=== PATIENT | male | born 1970 | race Caucasian/White ===

== ENCOUNTER 2018-02-01 16:33 | Observation (INO) | payer BC, SELFPAY ==
[2018-02-01] VITALS (9 sets, daily range): BP systolic 124–158; BP diastolic 72–95; PULSE 69–87; RESP 16–18; TEMP 36.7–36.8; O2SAT 94–98; BMI 41.4; BMI 41.6
--- NOTE | 2018-02-01 17:07 | EKG12_ITS ---
Test Reason : DIZZINESS Blood Pressure : / mmHG Vent. Rate : 075 BPM Atrial Rate : 075 BPM P-R Int : 152 ms QRS Dur : 120 ms QT Int : 384 ms P-R-T Axes : 038 041 037 degrees QTc Int : 428 ms Normal sinus rhythm Normal ECG Confirmed by JULEE ESPINOZA, FERNANDO ([id number]), editor index ELEAZAR GARCIA ([id number]) on 02/03/2018 1:54:34 PM Referred By: MAGO Confirmed By:FERNANDO LADD MD
--- NOTE | 2018-02-01 17:09 | ED.VISSUMM ---
- ER Visit Summary Date of Service: 02/01/18 Chief Complaint: Vertigo History of Present Illness: The patient is a 47 M with vertigo symptoms for 8 days. He was seen when this started on January 24 at [facility]. He was treated with fluids and medications. He had a CT of his head. He had continued symptoms and they recommended observation, but he went home. He has had continued vertigo on and off since then. He saw Dr. Wong today and they attempted Best maneuvers, but they did not help. He has had continued vertigo/spinning. He also reports nausea and vomiting, sinus congestion and drainage, unsteady gait, ataxia, and vision changes. Physical Examination: Afebrile and vital signs unremarkable. HEENT exam unremarkable. Cranial nerves grossly intact and exam nonfocal. Skin appears normal without rash. Heart regular. Lungs clear. Test Results: EKG and laboratory studies are pending. I am awaiting CT results from the outside facility. Emergency Department Course and Treatment: Patient treated with fluids, Benadryl, and Compazine while awaiting results. We will attempt to obtain his CT results. He will likely need MRI. I also paged neurology upon the patient's arrival. CT from the outside hospital was negative. I spoke with Dr. Miller who advised CTA head and neck in the ED, then admission for MRI. Laboratory studies and CTA unremarkable. Patient was drowsy but had no new or worsening symptoms. Discussed with the hospitalist and will be admitted. Treatment Plan: As above Disposition: Admission Impression: 1. Vertigo This note was generated with Swidjit dictation software. It may contain incorrect words, spelling, and punctuation that were not noted in review of the chart prior to signing ED Disposition - Plan for ED Patient: Chief Complaint: Dizziness Referrals: Marco Wong PA [PHYSICIAN TRANSPORTATION MUSEUM HELPER] -
--- NOTE | 2018-02-01 17:19 | NURSING ---
CALLED [facility], TALKED TO LOPEZ IN RADIOLOGY. SHE WILL FAX RESULTS OF CT BRAIN DONE JANUARY 24.
--- NOTE | 2018-02-01 17:19 | NURSING ---
NEUROLOGY FOR Lynn MERCEDES
--- NOTE | 2018-02-01 17:20 | CT_ITS ---
CTA of the neck INDICATION: Dizziness TECHNIQUE: CTA of the neck was performed scanning in a dynamically enhanced fashion from the pulmonary apices to the skull base in the axial plane followed by sagittal and coronal reconstructions. Additional 3-D images were obtained at the workstation. Radiographic technique was optimized to limit patient radiation dose FINDINGS:. There is very minor diffuse soft plaque seen within the carotid arteries bilaterally without evidence for significant stenosis. The vertebrals are codominant and there is no evidence for significant segmental stenosis CT/CTA Neck W/WO Contrast IMPRESSION: Minor atherosclerotic changes without evidence for hemodynamically significant stenosis utilizing NASCET criteria Electronically Signed: Froylan Baig MD at 19:13 EDT , Service support ,
--- NOTE | 2018-02-01 17:20 | CT_ITS ---
STUDY: CTA OF THE BRAIN REASON FOR EXAM: Male, 47 years old. Dizziness RADIATION DOSAGE (If Supplied By Facility): CTDIvol = ( 27.35 ) mGy, DLP = ( 1495.80 ) mGycm TECHNIQUE: CT angiography was performed with a multi-detector CT scanner. Data acquisition was obtained from the skull base through the vertex following intravenous administration of ml of . MIP images were reconstructed from the axial data set. Post-processing of the angiographic images was performed, with multiplanar reformation and 3D reconstruction. Individualized dose optimization techniques were used for this CT. COMPARISON: None. FINDINGS: Normal bilateral petrous carotid arteries. Normal right cavernous carotid artery with a normal supraclinoid bifurcation. Normal left cavernous carotid artery with a normal supraclinoid bifurcation. Normal right A1 segments of the anterior cerebral artery. Normal left A1 segments of the anterior cerebral artery. Normal intact anterior communicating artery (ACOM). Normal bilateral A2 segments of the anterior cerebral arteries. Normal right M1 and M2 segments of the middle cerebral arteries, with a normal M1 bifurcation. Normal left M1 and M2 segments of the middle cerebral arteries, with a normal M1 bifurcation. Posterior communicating arteries are not visualized consistent with normal variant Normal bilateral vertebral arteries. Normal basilar artery with a normal basilar bifurcation. The visualized bilateral superior cerebellar (SCA) arteries are normal. Normal bilateral P1, P2 and visualized P3 segments of the posterior cerebral arteries. There is no demonstrated aneurysm of the hoh of [place]. There is no demonstrated abnormality of the visualized brain. CT/CTA Head W/WO Contrast IMPRESSION: Normal hoh of [place] without a demonstrated aneurysm or hemodynamically significant stenosis. Electronically Signed: Froylan Baig MD at 19:15 EDT , Service support ,
[2018-02-01 17:37] LABS: Absolute Lymphocyte Count 2.64 X10^3/ul (0.83-4.51); Absolute Neutrophil Count 7.1 X10^3/uL (2.0-7.7); Basophil# 0.06 X10^3/uL; Basophil% 0.5 % (0-1); Eosinophil# 0.21 X10^3/uL; Eosinophils% 1.9 % (0-5); Hemoglobin 14.8 g/dl (13.0-16.5); Lymphocyte # 2.64 X10^3/ul (4.0); Lymphocyte % 24.2 % (19-41); Mean Corp Hgb Conc 33.6 g/gl (32-36); Mean Corpuscular Hgb 30.4 pg (27.0-32.0); Mean Corpuscular Volume 90.3 fL (80-94); Mean Platelet Vol. 10.1 fl (6.2-12.0); Monocyte# 0.81 X10^3/uL; Monocyte% 7.4 % (0-10); Neutrophil # 7.12 X10^3/uL (2.7-7.7); Neutrophil % 65.2 % (47-70); Platelet Count 187 K/mm3 (150-450); RBC Distribution Width CV 13.1 % (11.6-14.6); RBC Distribution Width SD 42.8 fl (35.1-43.9); Red Blood Count 4.87 M/mm3 (4.6-6.2); White Blood Count 10.9 K/mm3 (4.4-11.0)
[2018-02-01 17:45] LABS: POSITIVE COUNT NO; POSITIVE DIFFERENTIAL NO; POSITIVE MORPHOLOGY NO
[2018-02-01 17:53] LABS: International Normalized Ratio 0.9; Partial Thromboplast Time 26.7 Seconds (24.1-36.2); Prothrombin Time (Protime)PT. 12.5 SECONDS (11.7-14.9)
[2018-02-01 17:55] LABS: Anion Gap 10 (5-15); BUN 14 mg/dL (7-18); BUN/Creat Ratio 13.7 RATIO (10-20); Calcium,Total 9.3 mg/dL (8.5-10.1); Chloride 102 mmol/L (98-107); Creatinine, Serum 1.02 mg/dL (0.70-1.30); EST Glomerular Filtration Rate 83 mL/min (>60); Est Glom Filt Rate - Afr Amer 100 mL/min (>60); Estimated Creatinine Clearance 88.57 ml/min; Glucose 100 mg/dL (74-106); Potassium 3.9 mmol/L (3.5-5.1); Sodium Level 139 mmol/L (136-145)
[2018-02-01] MEDS: proCHLORPERazine 10 MG/2 ML Vial IV (17:58)
[2018-02-01] MEDS: DiphenhydrAMINE 50 MG/ML Syringe IV (17:59)
--- NOTE | 2018-02-01 20:50 | PCM.HP.STD ---
Problem List (1) Vertigo and dizziness Status: Acute (2) HTN (hypertension) Status: Chronic (3) Morbid obesity Status: Chronic History of Present Illness Date of Admission: 02/01/18 Chief Complaint: Dizziness and vertigo since January 24 The patient is a 47 year old M with history of hypertension and morbid obesity went to [facility] ED, [place] on January 24 for dizziness and vertigo and was advised admission but he declined and went home but had negative CT head. He complained of sinus headache, heaviness, sinus congestion and postnasal drip and is taking sinus decongestant cetirizine, pseudoephedrine and amoxicillin, started last Wednesday on January 24. Prior to that, he was having having unsteady gait and sinus symptoms. Today's size PCP Dr. Wong was attempted Brice-Hallpike maneuver but did not relieve him. Patient also complained of nausea, and sinus symptoms. He discussed with Dr. Miller neurologist was by to go ER. In ED, patient had CT angiogram of head and neck which did not show any acute occlusion or stenosis. CT head from outside was negative. EKG shows normal sinus rhythm at 75 bpm. Past Medical History Past Medical History (Chronic Problems): Chronic Problems HTN (hypertension) (Chronic) Morbid obesity (Chronic) Allergies No Known Allergies Allergy (Verified 02/01/18 16:38) Home Medications: Ambulatory Orders Medication Instructions Recorded Amoxicillin/Potassium Clav 1 tab PO BID 02/01/18 [Amox-Clav 875-125 mg Tablet] Atenolol [Tenormin] 25 mg PO DAILY 02/01/18 Cetirizine HCl [Zyrtec] 10 mg PO DAILY 02/01/18 Fenofibrate [Tricor] 48 mg PO DAILY 02/01/18 Fluticasone 0.05% [Flonase Nasal 1 spray NASAL PRN PRN 02/01/18 [place]] Lisinopril/Hydrochlorothiazide 1 tablet PO DAILY 02/01/18 [Zestoretic 20/25 Tablet] Meclizine HCl 25 mg PO TID PRN PRN 02/01/18 [place]-3 Fatty Acids [[place]-3] 1,000 mg PO DAILY 02/01/18 Pseudoephedrine HCl [Sudogest] 30 mg PO PRN PRN 02/01/18 Smoking Status: Former smoker Tobacco Use: Cigarettes - *Family History Paternal History Items: No pertinent history Review of Systems Constitutional: Denies: Chills, Fever, Weight Change HEENT: Reports: Nasal Congestion, Sinus Congestion, Sinus Drainage. Denies: Head Aches Cardiovascular: Denies: Chest Pain, Palpitations Respiratory: Denies: Cough, Shortness of breath at rest, Sputum production Gastrointestinal: Denies: Abdominal Pain, Nausea, Vomiting Genitourinary: Denies: Dysuria Musculoskeletal: Denies: Joint Pain, Joint Tenderness Skin: Denies: Rash, Wounds Neurological: Reports: Balance problems. Denies: Focal weakness, Numbness, Tingling Psychiatric: Denies: Anxiety, Depression, Homicidal Ideations, Suicidal Ideations Hematologic/ Lymphatic: Denies: Easy Bruising, Easy Bleeding VTE Information - Inpt Only VTE Present on Admission: No VTE Mechan Device Prophylaxis: SCD's VTE Pharm Prophylaxis ordered?: Yes Patient Problems: Active and Suspected Problems Vertigo and dizziness (Acute) - Physical Exam General: Alert, Oriented x3, Cooperative HEENT: Atraumatic, PERRLA, EOMI, Normocephalic Neck: Supple, No JVD, Negative Carotid Bruits Lungs: Clear to auscultation, Diminished - Bilateral lung bases Cardiovascular: Regular rate, Normal S1, Normal S2, No murmurs Abdomen: Bowel Sounds Present, Soft, Non Tender Extremities: No edema, Capillary Refill Less than 3 Seconds Skin: No rashes, No breakdown Musculoskeletal: No Tenderness to Palpation of Joints or Extremities Neurological: Cranial nerves II-XII grossly intact, Neuro grossly intact, Motor Exam 5/5 strength throughout, - - NIH stroke scale 0 Psych/Mental Status: Normal Affect, Appropriate Vital Signs Temp Pulse Resp BP Pulse Ox 98.2 F 74 16 157/87 H 98 02/01/18 16:36 02/01/18 20:08 02/01/18 20:08 02/01/18 20:08 02/01/18 20:08 Assessment/Plan All Active Problems Vertigo and dizziness (Acute) The patient is a 47 year old M with history of hypertension and morbid obesity went to [facility] ED, [place] on January 24 for dizziness and vertigo and was advised admission but he declined and went home but had negative CT head. He complained of sinus headache, heaviness, sinus congestion and postnasal drip and is taking sinus decongestant cetirizine, pseudoephedrine and Augmentin, started last Wednesday on January 24. Prior to that, he was having having unsteady gait and sinus symptoms. Today's size PCP Dr. Wong was attempted Maty-Hallpike maneuver but did not relieve him. Patient also complained of nausea, and sinus symptoms. He discussed with Dr. Miller neurologist was by to go ER. In ED, patient had CT angiogram of head and neck which did not show any acute occlusion or stenosis. CT head from outside was negative. EKG shows normal sinus rhythm at 75 bpm. 1. Persistent vertigo, unsteady gait with concern of possible posterior circulation stroke, possible due to sinus congestion/BPPV: Patient is being admitted for neuro evaluation. PCU admission with cardiopulmonary monitoring. NIH stroke scale. MRI brain and 2D echo ordered. Neuro consult. PT/OT and speech evaluation. Blood pressure slightly elevated. Serum glucose normal. Continue cetirizine, meclizine as needed. Patient completed Augmentin. 2. Hypertension: Continue his home medication atenolol, lisinopril/HCTZ. 3. Dyslipidemia: Fasting profile tomorrow a.m. Continue TriCor. 4. DVT prophylaxis: On heparin 500 Roxann's twice daily and bilateral SCDs. This note was generated with [employer] dictation software. Every effort was made to ensure accuracy, however computerized insurance application investigator mistakes may persist. Code Visit Inpatient E&M: 94052 Init Hosp L3 OBSV E&M: 53927 Initial observation care L3
--- NOTE | 2018-02-01 21:35 | ECHOD_ITS ---
Reason For Study: VERTIGO, R/O POST STROKE Procedure This was a 2D Doppler, Color Flow transthoracic echocardiogram. The exam was of fair technical quality due to body habitus. The study was technically difficult. Exam performed portable in patient room. Left Ventricle Normal LV size. Apical false tendon noted. Left ventricular systolic function is normal. The estimated ejection fraction is 65 %. Normal diastology for age. No regional wall motion abnormalities noted. Right Ventricle Normal RV size. Normal systolic function. Atria Normal left atrium. Normal right atrium. No doppler evidence for ASD. Bubble contrast study negative for right to left interatrial shunt. Mitral Valve There is no mitral annular calcification. Normal mitral valve. Trivial mitral valve insufficiency. Tricuspid Valve Normal tricuspid valve. Trivial tricuspid valve insufficiency. Right ventricular systolic pressure estimated to be 29 mmHg. Aortic Valve Trisinus/trileaflet aortic valve. Mild focal aortic valve calcification. Pulmonic Valve The pulmonic valve is not well visualized. Trivial pulmonic valve insufficiency. Great Vessels Normal sized aortic root. Pericardium/Pleural No pericardial effusion. Medication Performed a rapid injection of agitated mix of 9 cc saline and 1cc air to assess for atrial septal defect. MMode/2D Measurements & Calculations LVIDd: 5.5 cm IVSd: 1.1 cm Ao root diam: 2.9 cm LVIDs: 3.4 cm LVPWd: 1.3 cm LA dimension: 3.6 cm RVDd: 2.6 cm FS: 38.9 % LAV(MOD-bp): 47.0 ml LVAd ap4: 28.8 cm2 SV(MOD-sp4): 63.0 ml LAV(MOD-bp) Indexed: 19.7 ml/m2 EDV(MOD-sp4): 92.3 ml LAV(MOD-sp2): 58.9 ml EDV(sp4-el): 94.0 ml LAV(MOD-sp4): 36.2 ml LVAs ap4: 14.9 cm2 ESV(MOD-sp4): 29.3 ml ESV(sp4-el): 30.2 ml EF(MOD-sp4): 68.2 % EF(sp4-el): 67.9 % SV(sp4-el): 63.8 ml LA A4 area: 15.4 cm2 RA A4 area: 11.6 cm2 Time Measurements MV dec time: 0.18 sec Doppler Measurements & Calculations MV E max israel: 62.3 cm/sec Lat Peak E' [place]: 12.7 cm/sec Med Peak E' [place]: 12.5 cm/sec MV A max is[place]: 53.2 cm/sec E/E' lat: 4.9 E/E' med: 5.0 MV E/A: 1.2 Ao V2 max: 176.0 cm/sec LV V1 max: 143.9 cm/sec PA V2 max: 123.8 cm/sec Ao max P.4 mmHg LV V1 max P.3 mmHg TR max israel: 253.1 cm/sec TR max P.6 mmHg Interpretation Summary The study was technically difficult. Left ventricular systolic function is normal. The estimated ejection fraction is 65 %. Apical false tendon noted. Trivial mitral valve insufficiency. Trivial tricuspid valve insufficiency. Mild focal aortic valve calcification. Trivial pulmonic valve insufficiency. Right ventricular systolic pressure estimated to be 29 mmHg. Normal diastology for age. Ordering Physician: Mansoor Hampton Referring Physician: SERGEY MIRANDA Performed By: Jeniffer Garnica RDCS
--- NOTE | 2018-02-01 21:35 | MRI_ITS ---
STUDY: MRI BRAIN WITHOUT CONTRAST REASON FOR EXAM: Male, 47 years old. vertigo/HEADACHES X 2 WEEKS +VOMITTING. TECHNIQUE: Standardized multiplanar fat and water weighted pulse sequences were obtained. COMPARISON: None. FINDINGS: Normal size of the ventricles and extra-axial spaces for the patient's age. Normal white matter tracts of the supratentorial brain. Normal bilateral basal ganglia. Normal thalami. There is no extra-axial fluid accumulation. Normal flow voids within the major intracranial circulation suggesting patency by spin echo criteria. Normal sella turcica, pituitary gland, infundibular stalk, optic chiasm and hypothalamus. Normal tectal plate and pineal gland. Normal midbrain, [place] and medulla. Normal cerebellum. Normal basal cisterns. Normal bilateral temporal bones. Normal bilateral internal auditory canals. No demonstrated orbital abnormality, within the constraints of a routine brain study. Normal visualized paranasal sinuses. Normal calvarium and skull base. Normal visualized soft tissue structures. Normal visualized upper cervical spine. MRI/Brain without Contrast IMPRESSION: Unremarkable unenhanced MRI of the brain. Electronically Signed: Artemio Ceballos MD at 8:31 EDT Tel , Service support ,
[2018-02-01 22:27] LABS: Thyroid Stim Hormone (TSH) 1.87 uIU/mL (0.358-3.74)
[2018-02-01] MEDS: 0.9% Normal Saline 1,000 ML 75 ML IV (23:33)
[2018-02-01] MEDS: Aspirin 81 MG TAB.CHEW PO (23:34)
[2018-02-01] MEDS: Famotidine 20 MG Tablet PO (23:34)
[2018-02-01] MEDS: Heparin Injection (Vial) 5,000 UNIT/ML VIAL 5000 UNIT SC (23:34)
[2018-02-02] VITALS (9 sets, daily range): BP systolic 106–145; BP diastolic 52–86; PULSE 68–86; RESP 14–18; TEMP 36.4–36.9; O2SAT 93–96; BMI 41.6
[2018-02-02 05:13] LABS: Cholesterol 225 mg/dL (200); High Density Lipoprotein 35 mg/dL; Triglycerides 808 mg/dL
[2018-02-02] MEDS: Aspirin 81 MG TAB.CHEW PO (08:29)
[2018-02-02] MEDS: Loratadine 10 MG Tablet PO (08:29)
[2018-02-02] MEDS: hydroCHLOROthiazide 25 MG Tablet PO (08:29)
[2018-02-02] MEDS: Fenofibrate 48 MG Tablet PO (08:30)
[2018-02-02] MEDS: Atenolol 25 MG Tablet PO (08:30)
[2018-02-02] MEDS: Omega-3 Acid Ethyl Esters 1 GM Capsule PO (08:30)
[2018-02-02] MEDS: Heparin Injection (Vial) 5,000 UNIT/ML VIAL 5000 UNIT SC (08:30)
[2018-02-02] MEDS: Famotidine 20 MG Tablet PO (08:30)
[2018-02-02] MEDS: Lisinopril 20 MG Tablet PO (08:31)
[2018-02-02] MEDS: Meclizine HCl 25 MG Tablet PO (08:37)
[2018-02-02] MEDS: Acetaminophen 325 MG Tablet 650 MG PO (08:37)
[2018-02-02] MEDS: Ketorolac 15 MG/ML Vial IV (12:58)
[2018-02-02] MEDS: 0.9% NaCl Peripheral Flush Adult/Peds IV (12:58)
--- NOTE | 2018-02-02 13:49 | PCM.DC ---
- Discharge Diagnoses Current Active Problems: Current Active and Chronic Problems Vertigo and dizziness (Acute) HTN (hypertension) (Chronic) Morbid obesity (Chronic) You will use the following diet at home:: Cardiac, Other - Low cholesterol. Discharge Activity: Return to Normal Activity Call your doctor if you observe: Shortness of breath, Dizziness, Fainting spells, Chest pain Allergies/Adverse Reactions: Allergies No Known Allergies Allergy (Verified 02/01/18 16:38) Medications to take at Discharge Amoxicillin/Potassium Clav [Amox-Clav 875-125 mg Tablet] 1 tab PO BID 02/01/18 Atenolol [Tenormin] 25 mg PO DAILY 02/01/18 Cetirizine HCl [Zyrtec] 10 mg PO DAILY 02/01/18 Fenofibrate [Tricor] 48 mg PO DAILY 02/01/18 Fluticasone 0.05% [Flonase Nasal [place]] 1 spray NASAL PRN PRN 02/01/18 Lisinopril/Hydrochlorothiazide [Zestoretic 20/25 Tablet] 1 tablet PO DAILY 02/01/18 [place]-3 Fatty Acids [[place]-3] 1,000 mg PO DAILY 02/01/18 Pseudoephedrine HCl [Sudogest] 30 mg PO PRN PRN 02/01/18 Meclizine HCl 25 mg PO TID PRN PRN #20 tab 02/02/18 The following prescriptions were given: Meclizine HCl 25 mg PO TID PRN PRN #20 tab PRN Reason: Dizziness Primary Care Physician: Marco Wong PA [PHYSICIAN APPELLATE COURT JUDGE] - Please follow up with your Primary Care Physician in: 1 Week Test Results: Test results from this visit will be discussed in further detail at your follow-up appointment, if applicable. Please Follow Up With: Kevin Hernandez MD - ENT When: 3-5 Days Proposed Discharge Date: 02/02/18
--- NOTE | 2018-02-02 13:56 | PCM.CONS.GEN ---
Problem List (1) Vertigo and dizziness Status: Acute Reason for Consult Date of Consultation: 02/02/18 Reason for Consultation: Vertigo, dizziness History of Present Illness: The patient is a 47 year old CM with PMH HTN, morbid obesity admitted with dizziness. Per patient he started having dizziness about 8 days ago,felt the whole room was spinning, was at the grocery store, can back to his vehicle and due to dizziness could not drive and had to call his to drive, who took him to [facility], where he had normal CT head per patient and he was observed overnight and was discharged, but patient continues to experience dizziness, had severe sinus infection prior to the dizziness, per patient he also would have difficulty in walking due to dizziness but denies any CHRISTINA, visual disturbances, focal motor weakness or sensory loss. MRI brain don evelio admission did not show any acute stroke, CTA head/neck was reported to be negative for acute hemodynamic stenosis or occlusion. [] Past Medical History Past Medical History (Chronic Problems): Chronic Problems HTN (hypertension) (Chronic) Morbid obesity (Chronic) Allergies No Known Allergies Allergy (Verified 02/01/18 16:38) Home Medications: Ambulatory Orders Medication Instructions Recorded Amoxicillin/Potassium Clav 1 tab PO BID 02/01/18 [Amox-Clav 875-125 mg Tablet] Atenolol [Tenormin] 25 mg PO DAILY 02/01/18 Cetirizine HCl [Zyrtec] 10 mg PO DAILY 02/01/18 Fenofibrate [Tricor] 48 mg PO DAILY 02/01/18 Fluticasone 0.05% [Flonase Nasal 1 spray NASAL PRN PRN 02/01/18 [place]] Lisinopril/Hydrochlorothiazide 1 tablet PO DAILY 02/01/18 [Zestoretic 20/25 Tablet] [place]-3 Fatty Acids [[place]-3] 1,000 mg PO DAILY 02/01/18 Pseudoephedrine HCl [Sudogest] 30 mg PO PRN PRN 02/01/18 Meclizine HCl 25 mg PO TID PRN PRN #20 tab 02/02/18 Lives: Spouse/ Significant Other Smoking Status: Former smoker Tobacco Use: Cigarettes Alcohol: Occasional Drugs: None - *Family History Paternal History Items: No pertinent history Review of Systems Constitutional: Reports: - - complete ROS negative except as documented in HPI Patient Problems: Active and Suspected Problems Vertigo and dizziness (Acute) - Physical Exam General: Alert HEENT: Normocephalic Neck: Supple Lungs: Normal air movement Cardiovascular: Normal S1, Normal S2 Abdomen: Bowel Sounds Present Extremities: No cyanosis Skin: No rashes Musculoskeletal: No Tenderness to Palpation of Joints or Extremities Neurological: - - consious, alert, AoAx3, Cn 2-12 grossly intact, no nystagmus, power 5/5 all 4 extremities, no sensory loss, no cerebellar signs, Reflexes + B/L B/S/T/K/A, gait deferred Vital Signs Temp Pulse Resp BP Pulse Ox 98.3 F 76 18 118/67 96 02/02/18 13:12 02/02/18 13:12 02/02/18 13:12 02/02/18 13:12 02/02/18 13:12 Oxygen Delivery Method Room Air Weight: 127.9 kg Body Mass Index (BMI) 41.6 Orthostatic Vital Signs Start: 02/02/18 13:10 Freq: q24h Status: Active Protocol: Activity Type Activity Date Activity User E-Sign Co-Sign Detail Recorded Client Recorded Date Recorded By Document 02/02/18 13:10 EY [id number] 02/02/18 13:11 EY 02/02/18 13:10 Orthostatic Vitals Standing -Blood Pressure (90/60-120/80) 145/85 H -Extremity Use Left Arm -Pulse Rate (60-100) 84 Sitting -Blood Pressure (90/60-120/80) 134/84 H -Extremity Use Left Arm -Pulse Rate (60-100) 84 Lying -Blood Pressure (90/60-120/80) 118/67 -Extremity Use Left Arm -Pulse Rate (60-100) 76 Intake and Output for Last 24 Hours 01/31/18 02/01/18 02/02/18 23:59 23:59 23:59 Intake Total 400 / 400 1300 / 1300 Output Total 1650 / 1650 Balance 400 / 400 -350 / -350 Laboratory Tests Past 24 Hrs 02/01/18 02/02/18 21:54 04:30 Troponin I < 0.015 Triglycerides 808 H Cholesterol 225 H LDL Cholesterol TNP VLDL Cholesterol TNP HDL Cholesterol 35 L TSH 1.87 Assessment/Plan All Active Problems Vertigo and dizziness (Acute) The patient is a 47 year old CM with PMH HTN, morbid obesity admitted with dizziness. Per patient he started having dizziness about 8 days ago,felt the whole room was spinning, was at the grocery store, can back to his vehicle and due to dizziness could not drive and had to call his to drive, who took him to [facility] ED, where he had normal CT head per patient and he was observed overnight and was discharged, but patient continues to experience dizziness, had severe sinus infection prior to the dizziness, per patient he also would have difficulty in walking due to dizziness but denies any CHRISTINA, visual disturbances, focal motor weakness or sensory loss. MRI brain don evelio admission did not show any acute stroke, CTA head/neck was reported to be negative for acute hemodynamic stenosis or occlusion. Impression Dizziness- likely peripheral etiology Plan -MRI brain and CTA head/neck images reviewed- no acute stroke or dissection -Labs reviewed- has high TG and altered lipid profile, will defer further management to primary team -Vestibular therapy -Meclizine prn -ENT referral -GI/DVT prophylaxis -Further medical management per primary team. -Please call with questions if any -Thank you for allowing us to participate in patient's care and management I spent 60 minutes taking history, doing physical examination, reviewing medical records, coordinating care and counseling the patient. Code Visit Inpatient E&M: 55942 Init Hosp L3
--- NOTE | 2018-02-02 14:03 | PCM.DC.SUM ---
<Wendy Costa - Last Filed: 02/02/18 14:19> Discharge Date and Diagnosis Date of Admission: 02/01/18 Date of Discharge: 02/02/18 - Primary Discharge Diagnosis Active and Suspected Problems 1. Persistent vertigo- BPPV 2. Elevated triglycerides - Secondary Discharge Diagnosis Chronic Problems HTN (hypertension) (Chronic) Morbid obesity (Chronic) Hospital Course and Treatment Imaging Results: Diagnostic Data Head CTA 02/01/18 17:20 IMPRESSION: Normal [place] of [place] without a demonstrated aneurysm or hemodynamically significant stenosis. Electronically Signed: Froylan Baig MD at 19:15 EDT , Service support , Neck CTA 02/01/18 17:20 IMPRESSION: Minor atherosclerotic changes without evidence for hemodynamically significant stenosis utilizing NASCET criteria Electronically Signed: Froylan Baig MD at 19:13 EDT , Service support , Brain MRI 02/01/18 21:35 IMPRESSION: Unremarkable unenhanced MRI of the brain. Electronically Signed: Artemio Ceballos MD at 8:31 EDT Tel , Service support , Dr. Miller- Neurology Operations: None Procedures: 2-D Echocardiogram Summary of Care Provided: The patient is a 47 year old M who presents to the emergency room with persistent vertigo and dizziness. He has a past medical history of hypertension, morbid obesity, hyperlipidemia, allergic rhinitis. Recently treated with Augmentin for sinusitis as outpatient. Acute CVA ruled out. Suspected BPPV. Head CT negative. Next CTA showed no hemodynamically significant stenosis. MRI of brain unremarkable. Orthostatic vitals negative. PT evaluated patient and completed vestibular therapy prior to discharge. Patient will be discharged with meclizine 25 mg 3 times daily as needed for vertigo symptoms. Follow-up with ENT, Dr. Hernandez in 3-5 days for further vestibular therapy if needed. Patient's triglycerides were elevated at 808. Cholesterol 225. Continue home fenofibrate regimen. Recommend repeat fasting lipid panel by primary care physician with further medication adjustments as found necessary. Echocardiogram demonstrated an EF of 65%, apical follows tendon noted, RVSP estimated 29 mmHg. Patient is stable for discharge home with further follow-up with primary care physician and ENT. General: Alert, Oriented x3, Cooperative HEENT: Atraumatic, PERRLA, EOMI, Normocephalic Neck: Supple, No JVD, Negative Carotid Bruits Lungs: Clear to auscultation, Diminished - Bilateral lung bases Cardiovascular: Regular rate, Normal S1, Normal S2, No murmurs Abdomen: Bowel Sounds Present, Soft, Non Tender, obese Extremities: No edema, Capillary Refill Less than 3 Seconds Skin: No rashes, No breakdown Musculoskeletal: No Tenderness to Palpation of Joints or Extremities Neurological: Cranial nerves II-XII grossly intact, Neuro grossly intact Psych/Mental Status: Normal Affect, Appropriate Patient seen exam prior to discharge. Physical assessment as noted above. This patient was seen by APOLLO Pereyra under the supervision of Dr. Wan. Discharge Diet: Low fat/ Low Cholesterol Discharge Activity: Return to Normal Activity Call your doctor if you observe: Shortness of breath, Dizziness, Fainting spells, Chest pain Home Medications: Medications to take at Discharge Amoxicillin/Potassium Clav [Amox-Clav 875-125 mg Tablet] 1 tab PO BID 02/01/18 Atenolol [Tenormin] 25 mg PO DAILY 02/01/18 Cetirizine HCl [Zyrtec] 10 mg PO DAILY 02/01/18 Fenofibrate [Tricor] 48 mg PO DAILY 02/01/18 Fluticasone 0.05% [Flonase Nasal [place]] 1 spray NASAL PRN PRN 02/01/18 Lisinopril/Hydrochlorothiazide [Zestoretic 20/25 Tablet] 1 tablet PO DAILY 02/01/18 [place]-3 Fatty Acids [[place]-3] 1,000 mg PO DAILY 02/01/18 Pseudoephedrine HCl [Sudogest] 30 mg PO PRN PRN 02/01/18 Meclizine HCl 25 mg PO TID PRN PRN #20 tab 02/02/18 Following Prescrptions Were Given to Patient: Meclizine HCl 25 mg PO TID PRN PRN #20 tab PRN Reason: Dizziness Primary Care Physician: Marco Wong PA [PHYSICIAN MICROBIOLOGY TECHNOLOGIST] - Please follow up with your Primary Care Physician in: 1 Week Please Follow Up With: Kevin Hernandez MD - ENT When: 3-5 Days Disposition: Home Minutes spent on discharge:: 35 Patient Condition:: Stable Medical Necessity - Tobacco Use Smoking Status: Former smoker Tobacco Use: Cigarettes Meaningful Use Info Meaningful Use Diagnoses (Choose all that apply): None applicable <Kevin Wan - Last Filed: 02/02/18 14:57> Discharge Date and Diagnosis - Secondary Discharge Diagnosis Chronic Problems HTN (hypertension) (Chronic) Morbid obesity (Chronic) Hospital Course and Treatment Operations: None Procedures: 2-D Echocardiogram Summary of Care Provided: Patient seen and examined independently. Data reviewed. I agree with the above note by the nurse practitioner. The patient is a 47 year old M presents with vertigo. He underwent a stroke work up that was unremarkable. [place] to be peripheral vertigo.[] Discharge Diet: Low fat/ Low Cholesterol Discharge Activity: Return to Normal Activity Disposition: Home Patient Condition:: Stable Meaningful Use Info Meaningful Use Diagnoses (Choose all that apply): None applicable Code Visit OBSV E&M: 81377 Observation care discharge
--- NOTE | 2018-02-02 14:07 | CON.PCM_ITS ---
Problem List (1) Vertigo and dizziness Status: Acute Reason for Consult Date of Consultation: 02/02/18 Reason for Consultation: Vertigo, dizziness History of Present Illness: The patient is a 47 year old CM with PMH HTN, morbid obesity admitted with dizziness. Per patient he started having dizziness about 8 days ago,felt the whole room was spinning, was at the grocery store, can back to his vehicle and due to dizziness could not drive and had to call his to drive, who took him to [facility], where he had normal CT head per patient and he was observed overnight and was discharged, but patient continues to experience dizziness, had severe sinus infection prior to the dizziness, per patient he also would have difficulty in walking due to dizziness but denies any CHRISTINA, visual disturbances, focal motor weakness or sensory loss. MRI brain don evelio admission did not show any acute stroke, CTA head/neck was reported to be negative for acute hemodynamic stenosis or occlusion. [] Past Medical History Past Medical History (Chronic Problems): Chronic Problems HTN (hypertension) (Chronic) Morbid obesity (Chronic) Allergies No Known Allergies Allergy (Verified 02/01/18 16:38) Home Medications: Ambulatory Orders Medication Instructions Recorded Amoxicillin/Potassium Clav 1 tab PO BID 02/01/18 [Amox-Clav 875-125 mg Tablet] Atenolol [Tenormin] 25 mg PO DAILY 02/01/18 Cetirizine HCl [Zyrtec] 10 mg PO DAILY 02/01/18 Fenofibrate [Tricor] 48 mg PO DAILY 02/01/18 Fluticasone 0.05% [Flonase Nasal 1 spray NASAL PRN PRN 02/01/18 [place]] Lisinopril/Hydrochlorothiazide 1 tablet PO DAILY 02/01/18 [Zestoretic 20/25 Tablet] [place]-3 Fatty Acids [[place]-3] 1,000 mg PO DAILY 02/01/18 Pseudoephedrine HCl [Sudogest] 30 mg PO PRN PRN 02/01/18 Meclizine HCl 25 mg PO TID PRN PRN #20 tab 02/02/18 Lives: Spouse/ Significant Other Smoking Status: Former smoker Tobacco Use: Cigarettes Alcohol: Occasional Drugs: None - *Family History Paternal History Items: No pertinent history Review of Systems Constitutional: Reports: - - complete ROS negative except as documented in HPI Patient Problems: Active and Suspected Problems Vertigo and dizziness (Acute) - Physical Exam General: Alert HEENT: Normocephalic Neck: Supple Lungs: Normal air movement Cardiovascular: Normal S1, Normal S2 Abdomen: Bowel Sounds Present Extremities: No cyanosis Skin: No rashes Musculoskeletal: No Tenderness to Palpation of Joints or Extremities Neurological: - - consious, alert, AoAx3, Cn 2-12 grossly intact, no nystagmus, power 5/5 all 4 extremities, no sensory loss, no cerebellar signs, Reflexes + B/ L B/S/T/K/A, gait deferred Vital Signs Temp Pulse Resp BP Pulse Ox 98.3 F 76 18 118/67 96 02/02/18 13:12 02/02/18 13:12 02/02/18 13:12 02/02/18 13:12 02/02/18 13:12 Oxygen Delivery Method Room Air Weight: 127.9 kg Body Mass Index (BMI) 41.6 Orthostatic Vital Signs Start: 02/02/18 13:10 Freq: q24h Status: Active Protocol: Activity Type Activity Date Activity User E-Sign Co-Sign Detail Recorded Client Recorded Date Recorded By Document 02/02/18 13:10 EY [id number] 02/02/18 13:11 EY 02/02/18 13:10 Orthostatic Vitals Standing -Blood Pressure (90/60-120/80) 145/85 H -Extremity Use Left Arm -Pulse Rate (60-100) 84 Sitting -Blood Pressure (90/60-120/80) 134/84 H -Extremity Use Left Arm -Pulse Rate (60-100) 84 Lying -Blood Pressure (90/60-120/80) 118/67 -Extremity Use Left Arm -Pulse Rate (60-100) 76 Intake and Output for Last 24 Hours 01/31/18 02/01/18 02/02/18 23:59 23:59 23:59 Intake Total 400 / 400 1300 / 1300 Output Total 1650 / 1650 Balance 400 / 400 -350 / -350 Laboratory Tests Past 24 Hrs 02/01/18 02/02/18 21:54 04:30 Troponin I < 0.015 Triglycerides 808 H Cholesterol 225 H LDL Cholesterol TNP VLDL Cholesterol TNP HDL Cholesterol 35 L TSH 1.87 Assessment/Plan All Active Problems Vertigo and dizziness (Acute) The patient is a 47 year old CM with PMH HTN, morbid obesity admitted with dizziness. Per patient he started having dizziness about 8 days ago,felt the whole room was spinning, was at the grocery store, can back to his vehicle and due to dizziness could not drive and had to call his to drive, who took him to [facility], where he had normal CT head per patient and he was observed overnight and was discharged, but patient continues to experience dizziness, had severe sinus infection prior to the dizziness, per patient he also would have difficulty in walking due to dizziness but denies any CHRISTINA, visual disturbances, focal motor weakness or sensory loss. MRI brain don evelio admission did not show any acute stroke, CTA head/neck was reported to be negative for acute hemodynamic stenosis or occlusion. Impression Dizziness- likely peripheral etiology Plan -MRI brain and CTA head/neck images reviewed- no acute stroke or dissection -Labs reviewed- has high TG and altered lipid profile, will defer further management to primary team -Vestibular therapy -Meclizine prn -ENT referral -GI/DVT prophylaxis -Further medical management per primary team. -Please call with questions if any -Thank you for allowing us to participate in patient's care and management I spent 60 minutes taking history, doing physical examination, reviewing medical records, coordinating care and counseling the patient. Code Visit Inpatient E&M: 86813 Init Hosp L3
--- NOTE | 2018-02-02 14:18 | DS.PCM_ITS ---
<Wendy Costa - Last Filed: 02/02/18 14:19> Discharge Date and Diagnosis Date of Admission: 02/01/18 Date of Discharge: 02/02/18 - Primary Discharge Diagnosis Active and Suspected Problems 1. Persistent vertigo- BPPV 2. Elevated triglycerides - Secondary Discharge Diagnosis Chronic Problems HTN (hypertension) (Chronic) Morbid obesity (Chronic) Hospital Course and Treatment Imaging Results: Diagnostic Data Head CTA 02/01/18 17:20 IMPRESSION: Normal [place] of [place] without a demonstrated aneurysm or hemodynamically significant stenosis. Electronically Signed: Froylan Baig MD at 19:15 EDT , Service support , Neck CTA 02/01/18 17:20 IMPRESSION: Minor atherosclerotic changes without evidence for hemodynamically significant stenosis utilizing NASCET criteria Electronically Signed: Froylan Baig MD at 19:13 EDT , Service support , Brain MRI 02/01/18 21:35 IMPRESSION: Unremarkable unenhanced MRI of the brain. Electronically Signed: Artemio Ceballos MD at 8:31 EDT Tel , Service support , Dr. Miller- Neurology Operations: None Procedures: 2-D Echocardiogram Summary of Care Provided: The patient is a 47 year old M who presents to the emergency room with persistent vertigo and dizziness. He has a past medical history of hypertension , morbid obesity, hyperlipidemia, allergic rhinitis. Recently treated with Augmentin for sinusitis as outpatient. Acute CVA ruled out. Suspected BPPV. Head CT negative. Next CTA showed no hemodynamically significant stenosis. MRI of brain unremarkable. Orthostatic vitals negative. PT evaluated patient and completed vestibular therapy prior to discharge. Patient will be discharged with meclizine 25 mg 3 times daily as needed for vertigo symptoms. Follow-up with ENT, Dr. Hernandez in 3-5 days for further vestibular therapy if needed. Patient's triglycerides were elevated at 808. Cholesterol 225. Continue home fenofibrate regimen. Recommend repeat fasting lipid panel by primary care physician with further medication adjustments as found necessary. Echocardiogram demonstrated an EF of 65%, apical follows tendon noted, RVSP estimated 29 mmHg. Patient is stable for discharge home with further follow-up with primary care physician and ENT. General: Alert, Oriented x3, Cooperative HEENT: Atraumatic, PERRLA, EOMI, Normocephalic Neck: Supple, No JVD, Negative Carotid Bruits Lungs: Clear to auscultation, Diminished - Bilateral lung bases Cardiovascular: Regular rate, Normal S1, Normal S2, No murmurs Abdomen: Bowel Sounds Present, Soft, Non Tender, obese Extremities: No edema, Capillary Refill Less than 3 Seconds Skin: No rashes, No breakdown Musculoskeletal: No Tenderness to Palpation of Joints or Extremities Neurological: Cranial nerves II-XII grossly intact, Neuro grossly intact Psych/Mental Status: Normal Affect, Appropriate Patient seen exam prior to discharge. Physical assessment as noted above. This patient was seen by AOPLLO Pereyra under the supervision of Dr. Wan. Discharge Diet: Low fat/ Low Cholesterol Discharge Activity: Return to Normal Activity Call your doctor if you observe: Shortness of breath, Dizziness, Fainting spells , Chest pain Home Medications: Medications to take at Discharge Amoxicillin/Potassium Clav [Amox-Clav 875-125 mg Tablet] 1 tab PO BID 02/01/18 Atenolol [Tenormin] 25 mg PO DAILY 02/01/18 Cetirizine HCl [Zyrtec] 10 mg PO DAILY 02/01/18 Fenofibrate [Tricor] 48 mg PO DAILY 02/01/18 Fluticasone 0.05% [Flonase Nasal [place]] 1 spray NASAL PRN PRN 02/01/18 Lisinopril/Hydrochlorothiazide [Zestoretic 20/25 Tablet] 1 tablet PO DAILY 02/01 [place]-3 Fatty Acids [[place]-3] 1,000 mg PO DAILY 02/01/18 Pseudoephedrine HCl [Sudogest] 30 mg PO PRN PRN 02/01/18 Meclizine HCl 25 mg PO TID PRN PRN #20 tab 02/02/18 Following Prescrptions Were Given to Patient: Meclizine HCl 25 mg PO TID PRN PRN #20 tab PRN Reason: Dizziness Primary Care Physician: Marco Wong PA [PHYSICIAN COSMETIC MAKER] - Please follow up with your Primary Care Physician in: 1 Week Please Follow Up With: Kevin Hernandez MD - ENT When: 3-5 Days Disposition: Home Minutes spent on discharge:: 35 Patient Condition:: Stable Medical Necessity - Tobacco Use Smoking Status: Former smoker Tobacco Use: Cigarettes Meaningful Use Info Meaningful Use Diagnoses (Choose all that apply): None applicable <Kevin Wan - Last Filed: 02/02/18 14:57> Discharge Date and Diagnosis - Secondary Discharge Diagnosis Chronic Problems HTN (hypertension) (Chronic) Morbid obesity (Chronic) Hospital Course and Treatment Operations: None Procedures: 2-D Echocardiogram Summary of Care Provided: Patient seen and examined independently. Data reviewed. I agree with the above note by the nurse practitioner. The patient is a 47 year old M presents with vertigo. He underwent a stroke work up that was unremarkable. [place] to be peripheral vertigo.[] Discharge Diet: Low fat/ Low Cholesterol Discharge Activity: Return to Normal Activity Disposition: Home Patient Condition:: Stable Meaningful Use Info Meaningful Use Diagnoses (Choose all that apply): None applicable Code Visit OBSV E&M: 52917 Observation care discharge
[2018-02-02 14:32] LABS: Hemoglobin A1c 5.6 % (4.2-6.3)
--- NOTE | 2018-02-02 14:58 | PCM.WORK.EX ---
Work/School Excuse Work/School Excuse for:: Patient Please excuse this person from:: Work From: 02/01/18 through: 02/07/18 - Until cleared by PCP or ENT.
== END 2018-02-02 13:49 | disposition home or self-care (01) ==
LOC: ED 17:10 → PCU 20:39
PROVIDERS: Nurse Practitioner Family; Admitting Provider Internal Medicine; Emergency Provider Emergency Medicine; Family Provider Family Medicine; PCP Family Medicine
DX: H81.10 Benign paroxysmal vertigo, unspecified ear (principal); I10 Essential (primary) hypertension; E66.01 Morbid (severe) obesity due to excess calories; Z68.41 Body mass index [BMI] 40.0-44.9, adult; Z71.3 Dietary counseling and surveillance; E78.5 Hyperlipidemia, unspecified; J30.9 Allergic rhinitis, unspecified; Z79.899 Other long term (current) drug therapy; F17.220 Nicotine dependence, chewing tobacco, uncomplicated
CPT/HCPCS: 36415; 70496; 70498; 70551; 80048; 80061; 83036; 84443; 84484; 85025; 85610; 85730; 92523; 93005; 93306; 96361; 96372; 96374; 96375; 97162; 99218; 99283; J7030; J7040; Q9967; A4216; G0378

== ENCOUNTER 2018-03-15 18:00 | Outpatient (RCR) | payer BC, SELFPAY ==
--- NOTE | 2018-02-16 17:26 | HP.PTEVAL_ITS ---
Patient's Visit Information HERMAN CALDWELL is a 48 year old M referred to Physical Therapy by Kevin Hernandez MD with a diagnosis of BPPV. Date of Evaluation: 02/16/18 Physical Therapist: Annalisa Junior - Visit Plan Frequency: 2-3x /Week Duration: 6 Weeks Plan: See pt 2-3 X/ week for 6 weeks to re-test R hallpike and see if symptoms have subsided. To work on VOR exercises and focus/tracking starting in sitting and progressing to dynamic and more loud/ busy backgrounds, vestibular exercises , balance and gait training with HEP. Would like to assess neck as well to see if dizziness increases with neck movement. Did not do today due to the amount of dizziness the pt was having and did not want to move neck to much with just performing L Eply. - Subjective Subjective: He was diagnosed with vertigo and has been going on since . The dizziness is better but now he feels that he is in a fog. Neurology cleared him via catscan. Dr Hernandez said that his verstibular is atypical. Prior to January 24 he had the worst sinus congestion he ever had and then the dizziness came on....the whole building started spinning in the grocery store and got sick in the trash bag. He could not keep down ice water and sat in van for 3 hours and took him to ER. Current symptoms: migrane like 5/10 today ( excedrine only). He currently feels like everything is floating. He sometimes gets dizzy when rolling over in bed at night. Eye exam is 20/20. Sometimes that he feels that his eyes can't catch up with his brain sees. He feels like he has to watch where he walks to make sure his feet go where he wants them to do. Certain things on TV he can;t watch anymore. Somedays he feels ok and others he feels worse. 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 when rolls in bed at times the dizziness he feels like he is spinning and last about a minute. He complains of stiff neck and sometimes can make his dizziness stop temp if he pushes on his neck. Pt has been sleeping at [facility] because he is afraid he will fall down stairs at home when he is by himself. - Pain CHRISTINA Pain Intensity (Out of 10): 5 - Objective - Hallpike on the L for nystagmus and dizziness. + Hallpike on the R for nystagmus with naked eye but pt did have dizziness that subsided was about 20- 25 seconds. Performed Eply right from that position. Re-tested R Hallpike and he had no dizziness and no nystagmus. FGA: 9 (high risk for falls). Pursuits : decreased ability (more to the R than the L) to keep eyes focused on the moving target. Made pt feel ill. saccades: no real eye deviation and did not make pt feel ill. VOR Cx: fatigued quickly and slight nausea feeling. Head thrust test: Could not keep focused either direction but worse to the L than the R. Dynamic Visual acuity test: pt could read line 10/10 but with head moving he could only correctly read line 10/30 ( 5 lines above) and made pt very dizzy/nausea - Balance Scores Functional Gait Assessment Score: 9 % Disability: 70.0000 - Anticipated Interventions Patient/Client Instruction: Educate patient on: Plan of Care For the Purpose of:: To improve muscle performance and motor function, To improve ability to perform ADL's, To increase tolerance to activity/condition/ position, To improve performance and independence with ADL's, To decrease level of supervision to perform tasks, To improve ability of physical actions for home /community/work/leisure, To improve gait and locomotor functions, To improve balance, To improve safety with gait, To improve safety Therapeutic Exercise to Include: Strength training, Balance training, Postural training, Flexibilty training, Gait and locomotor training, Neuromotor development, Passive ROM, Active ROM, Scapular Strength/Stabilization For the Purpose of:: To improve muscle performance and motor function, To improve ability to perform ADL's, To increase tolerance to activity/condition/ position, To improve performance and independence with ADL's, To decrease level of supervision to perform tasks, To improve ability of physical actions for home /community/work/leisure, To improve gait and locomotor functions, To improve health of tissue, To increase flexibility/ROM, To improve balance, To improve safety with gait Functional Training to Include: Gait training For the Purpose of:: To improve gait and locomotor functions, To improve safety with gait Manual Therapy Techniques to Include: Mobilization, Passive ROM, Soft tissue mobilization Comment: Eply For the Purpose of:: To improve muscle performance and motor function, To improve ability to perform ADL's, To increase tolerance to activity/condition/ position, To improve performance and independence with ADL's, To improve ability of physical actions for home/community/work/leisure, To improve gait and locomotor functions, To improve health of tissue, To increase flexibility/ ROM, To improve balance, To improve safety with gait Thank you for the opportunity to evaluate your patient. For Medicare and Medicare HMO plans, please review the plan of care and approve it. It will need to be FAXED BACK to us at [phone] for Medicare purposes. Please let me know if there are questions or concerns regarding this plan of care. Physician Signature: Date:
--- NOTE | 2018-05-20 12:58 | HP.PTDCNRP_ITS ---
HP - Discharge Summary (1) - Patient Information HERMAN CALDWELL was seen in my office for initial evaluation on 02/16/18. The following Plan of Care was established for this patient: Initial Frequency: 2-3x /Week Initial Duration: 6 Weeks - Anticipated Interventions Patient/Client Instruction: Educate patient on: Plan of Care For the Purpose of:: To improve muscle performance and motor function, To improve ability to perform ADL's, To increase tolerance to activity/condition/position, To improve performance and independence with ADL's, To decrease level of supervision to perform tasks, To improve ability of physi kymberly actions for home/community/work/leisure, To improve gait and locomotor functions, To improve balance, To improve safety with gait, To improve safety Therapeutic Exercise to Include: Strength training, Balance training, Postural training, Flexibilty training, Gait and locomotor training, Neuromotor development, Passive ROM, Active ROM, Scapular Strength/Stabilization For the Purpose of:: To improve muscle performance and motor function, To improve ability to perform ADL's, To increase tolerance to activity/condition/position, To improve performance and independence with ADL's, To decrease level of supervision to perform tasks, To improve ability of physical actions for home/community/work/leisure, To improve gait and locomotor functions, To improve health of tissue, To increase flexibility/ROM, To improve balance, To improve safety with gait Functional Training to Include: Gait training For the Purpose of:: To improve gait and locomotor functions, To improve safety with gait Manual Therapy Techniques to Include: Mobilization, Passive ROM, Soft tissue mobilization Comment: Eply For the Purpose of:: To improve muscle performance and motor function, To improve ability to perform ADL's, To increase tolerance to activity/condition/position, To improve performance and independence with ADL's, To improve ability of physical actions for home/community/work/leisure, To improve gait and locomotor functions, To improve health of tissue, To increase flexibility/ROM, To improve balance, To improve safety with gait This patient was last seen in our office 03/15/18. Pertinent comments regarding their Physical therapy will appear below: pt was feeling better and did not reschedule. DC PT At this point I will be discontinuing this patient from physical therapy. I would be happy to see this patient again in the future if found appropriate by the physician. Thank you! Annalisa Junior
== END 2018-03-15 19:00 | disposition home or self-care (01) ==
LOC: PT 18:00
PROVIDERS: Family Provider Family Medicine; PCP Family Medicine; Visit Provider Otolaryngology
DX: H81.10 Benign paroxysmal vertigo, unspecified ear (principal)
CPT/HCPCS: 97140; 97162; 97530

== ENCOUNTER 2020-08-15 10:45 | Emergency (ER) | payer OTHER, SELFPAY ==
[2020-08-15 10:47] VITALS: BP 163/70; PULSE 76; RESP 18; TEMP 36.1; O2SAT 97; BMI 35.4
--- NOTE | 2020-08-15 10:56 | EKG12_ITS ---
Test Reason : CP Blood Pressure : / mmHG Vent. Rate : 070 BPM Atrial Rate : 070 BPM P-R Int : 160 ms QRS Dur : 126 ms QT Int : 412 ms P-R-T Axes : 003 047 030 degrees QTc Int : 444 ms Normal sinus rhythm Non-specific intra-ventricular conduction block Abnormal ECG Confirmed by EVARISTO ESPINOZA, YANIV ([id number]), food expeditor KAYLIE RICHARDSON ([id number]) on 08/20/2020 10:38:27 AM Referred By: ZENOBIA Confirmed By:YANIV LOERA MD
[2020-08-15 11:10] VITALS: O2SAT 98
[2020-08-15 11:10] LABS: Absolute Lymphocyte Count 2.53 X10^3/uL (0.83-4.51); Absolute Neutrophil Count 5.5 X10^3/uL (2.0-7.7); Basophil% 1.1 % (0-1); Eosinophil# 0.17 X10^3/uL; Eosinophils% 1.9 % (0-5); Hematocrit 46.4 % (40-54); Hemoglobin 15.9 g/dL (13.0-16.5); Lymphocyte # 2.53 X10^3/ul (4.0); Lymphocyte % 28.5 % (19-41); Mean Corp Hgb Conc 34.3 g/dL (32-36); Mean Corpuscular Volume 90.4 fL (80-94); Mean Platelet Vol. 10.1 fl (6.2-12.0); Monocyte# 0.51 X10^3/uL; Monocyte% 5.7 % (0-10); NRBC Flagged by Analyzer 0 % (0-5); Platelet Count 248 K/mm3 (150-450); RBC Distribution Width CV 12.6 % (11.6-14.6); Red Blood Count 5.13 M/mm3 (4.6-6.2); White Blood Count 8.9 K/mm3 (4.4-11.0)
--- NOTE | 2020-08-15 11:21 | RAD_ITS ---
STUDY: X-RAY CHEST REASON FOR EXAM: Male, 50 years old. Chest pain, sob, heart palpitations, and lightheadedness for the past two weeks -- HX OF HTN TECHNIQUE: Single AP portable view of the chest. COMPARISON: None. FINDINGS: EKG electrodes are seen. The lungs are clear and expanded. There is no demonstrated pleural abnormality. Normal size heart. Normal mediastinum and ralph. Normal visualized pulmonary arteries. Normal visualized aortic arch and descending thoracic aorta. Normal visualized thoracic spine. Normal visualized ribs, clavicles, and shoulders. There is no demonstrated abnormality of the visualized soft tissue structures of the upper abdomen. RAD/Chest 1 View (Portable) IMPRESSION: Normal x-ray examination of the chest. Electronically Signed: Pedro Patel MD at 11:52 EST , Service support ,
[2020-08-15 11:25] LABS: Anion Gap 5 (5-15); BUN 24 mg/dL (7-18); BUN/Creat Ratio 20.9 RATIO (10-20); Calcium,Total 9.7 mg/dL (8.5-10.1); Chloride 103 mmol/L (98-107); Creatinine, Serum 1.15 mg/dL (0.70-1.30); D-Dimer Quantitative (DVT/PE) <= 0.27 FEU/ug/m (0.27-0.49); EST Glomerular Filtration Rate 71 mL/min (>60); Est Glom Filt Rate - Afr Amer 86 mL/min (>60); Estimated Creatinine Clearance 75.99 ml/min; Glucose 112 mg/dL (74-106); Potassium 3.9 mmol/L (3.5-5.1); Sodium Level 136 mmol/L (136-145)
--- NOTE | 2020-08-15 11:25 | ED.VIS.GEN ---
History of Present Illness Chief Complaint: Chest Pain Informant: Patient Narrative: 50-year-old male presenting with chest pain which she states feels like it sharp and stabbing for the last 2 weeks. He states it he has intermittent lightheadedness as well as palpitations. This seems to be more prevalent when he gets out of his work truck and stands up. Patient has not had any episodes of syncope. He denies cardiac history. Denies history of DVT/PE. Patient denies fever, chills, cough, myalgias, change in taste or smell. He has no known sick contacts. - Past Medical History (1) HTN (hypertension) Status: Chronic Past Medical History - Allergies and Home Meds Allergies/Adverse Reactions: Allergies No Known Allergies Allergy (Verified 08/15/20 10:46) Primary Care Physician: Vincent Prescott MD [Primary Care Provider] - Prior records reviewed: Yes Past Medical History: - - Reviewed in problem list Lives: Spouse/ Significant Other Smoking Status: Never smoker Alcohol: None Drugs: None - Family History Paternal Family History: Reports: No pertinent history Review of Systems General: Denies: Chills, Fever Eyes: Denies: Visual changes - bilaterally, Diplopia ENT: Denies: Rhinorrhea, Sore throat Cardiovascular: Reports: Chest pain, Palpitations Respiratory: Denies: Dyspnea, Cough, Sputum Gastrointestinal: Denies: Abdominal pain, Nausea, Vomiting Genitourinary: Denies: Dysuria, Hematuria Musculoskeletal: Denies: Myalgias, Arthralgias Skin: Denies: Rash, Abscess Neurological: Reports: Headache. Denies: Parasthesia, Numbness Psych: Denies: Depression, Anxiety Physical Exam Vital Signs/Narrative: Vital Signs Temp Pulse Resp BP Pulse Ox 08/15/20 11:10 98 08/15/20 10:47 96.9 F L 76 18 163/70 H 97 Inital Vital Signs reviewed: Yes General: Well nourished, No Acute Distress Head: Normocephalic, Atraumatic Eyes: Perrl, EOMI ENT: Moist mucous membranes, No rhinorrhea Cardiovascular: Regular rate, Regular rhythm Respiratory: No distress, CTA bilaterally Skin: Normal color, No rash. Negative for: Cyanosis, Diaphoresis Neurological: Alert, Oriented x3, Cranial nerves II-XII grossly intact Psychological: Normal affect, Normal Mood Diagnostic/Tx/Re-eval Clinical Impression(s) from Imaging Studies Chest X-Ray 08/15/20 11:21 IMPRESSION: Normal x-ray examination of the chest. Electronically Signed: Pedro Patel MD at 11:52 EST , Service support , Laboratory Data 08/15/20 08/15/20 08/15/20 11:00 11:00 11:00 WBC 8.9 RBC 5.13 Hgb 15.9 Hct 46.4 MCV 90.4 MCH 31.0 MCHC 34.3 RDW Std Deviation 42.0 RDW Coeff of Charlie 12.6 Plt Count 248 MPV 10.1 Immature Gran % (Auto) 0.800 Neut % (Auto) 62.0 Lymph % (Auto) 28.5 [place] % (Auto) 5.7 Eos % (Auto) 1.9 Baso % (Auto) 1.1 H Absolute Neuts (auto) 5.5 Absolute Lymphs (auto) 2.53 Nucleated RBC % 0 D-Dimer Quant (PE/DVT) <= 0.27 Sodium 136 Potassium 3.9 Chloride 103 Carbon Dioxide 28.0 Anion Gap 5 BUN 24 H Creatinine 1.15 Estim Creat Clear Calc 75.99 Est GFR (MDRD) Af Amer 86 Est GFR (MDRD) Non-Af 71 BUN/Creatinine Ratio 20.9 H Glucose 112 H Calcium 9.7 Troponin I < 0.015 - Rhythm Strip Rhythm Strip: Sinus Rhythm Rate: 98 - EKG Initial EKG Interpretation: Sinus Rhythm, No Acute Injury Pattern - Medical Decision Making Male presenting with chest pain over the last 2 weeks. He also admits to some lightheadedness. He does not feel it is vertiginous in nature. Patient's vital signs are stable and he is afebrile. He is nontoxic-appearing. EKG performed on arrival shows a sinus rhythm at 98 bpm without signs of ischemic change as interpreted by myself. Chest x-ray as interpreted by myself shows no acute cardiopulmonary process. Radiology does agree. Lab work is within normal limits. Troponin is negative. D-dimer is negative. Patient's heart score is 2 however given the duration of his symptoms I do not believe he needs a delta troponin or EKG. Patient is counseled that he will follow-up with his patient primary care provider. He is given return precautions. Patient stable discharge at this time. Impression: 1. Chest pain 2. Lightheadedness ED Disposition - Plan for ED Patient: Disposition: Home or Assisted Living Instructions: ED Chest Pain, Uncertain Cause Referrals: Vincent Prescott MD [Primary Care Provider] -
[2020-08-15 12:16] VITALS: BP 175/97; PULSE 68; RESP 13; O2SAT 97
== END 2020-08-15 12:19 | disposition home or self-care (01) ==
PROVIDERS: Emergency Provider Student in an Organized Health Care Education/Training Program; PCP Family Medicine
DX: R07.9 Chest pain, unspecified (principal); R42 Dizziness and giddiness; I10 Essential (primary) hypertension; Z79.899 Other long term (current) drug therapy
CPT/HCPCS: 71045; 80048; 84484; 85025; 85379; 93005; 99285

== ENCOUNTER 2023-11-03 10:57 | Emergency (ER) | payer BC, SELFPAY ==
[2023-11-03 10:58] VITALS: BP 166/86; PULSE 82; RESP 16; TEMP 36.4; O2SAT 96; BMI 43.0
--- NOTE | 2023-11-03 11:12 | CT_ITS ---
STUDY: CT ABDOMEN AND PELVIS WITH CONTRAST REASON FOR EXAM: Male, 53 years old. 2 week history of abdominal pain and nausea. RADIATION DOSAGE (If Supplied By Facility): CTDIvol = ( 13.35 ) mGy, DLP = ( 1260.03 ) mGycm TECHNIQUE: Transaxial images were obtained from the dome of the diaphragm to the symphysis pubis without oral contrast. IV 100mL Isovue-370 was administered. Sagittal and coronal images were reconstructed. Individualized dose optimization techniques were used for this CT. COMPARISON: None. FINDINGS: Minimal increased linear markings at the right lung base suggestive of left basilar atelectasis and/or scarring. The visualized portions of the heart are within normal limits. There is decreased attenuation of the liver consistent with steatosis. Hepatomegaly. Normal gallbladder and extrahepatic biliary system. Normal spleen. Normal pancreas. Normal bilateral adrenal glands. Normal right kidney. Normal left kidney. Normal visualized stomach. Normal small intestine. There is diverticulosis, with thickening of the colon wall, and pericolonic inflammation changes consistent with acute diverticulitis. The appendix is visualized and appears normal. There is scattered atherosclerotic calcification of the abdominal aorta, without a demonstrated aneurysm. Normal inferior vena cava. Normal retroperitoneum. Diffuse irregular bladder wall thickening suggestive of trabeculation. There are prostatic calcifications. There is a left-sided inguinal hernia containing adipose tissue. There are mild degenerative changes of the visualized lumbar spine. CT/Abdomen/Pelvis W IV Cont ONLY IMPRESSION: Hepatomegaly and fatty infiltration of the liver. Findings suggestive of a acute noncomplicated sigmoid diverticulitis. Diffuse bladder wall thickening with trabeculations. Electronically Signed: Pedro Patel MD at 12:20 EDT ,
--- NOTE | 2023-11-03 11:13 | ED.VIS.GI ---
HPI HPI - GI History of Present Illness Chief Complaint: Abd Pain Informant: patient Narrative Narrative: Sent from PCP office progressive lower abdominal pain over 2 weeks. Having pain when he urinates. He does report intermittent decreased stream. He urinated at 9:30 AM today. Feels like he empties fully. Family history of prostate cancer he states he was checked last month. Normal bowel movement yesterday. However does report pain in in his suprapubic region when he has bowel movements. No fevers or chills. Denies any abdominal surgeries. He had concerns for hernia therefore went to his PCP. PFSH PFSH Home Medications Cetirizine Hcl [Zyrtec] 10 mg PO DAILY 02/01/18 [History Last Taken 02/01/18] Lisinopril/Hydrochlorothiazide [Zestoretic 20/25 Tablet] 1 tab PO DAILY BP 02/01/18 [History Last Taken 02/01/18] atenolol 25 mg tablet (Tenormin) 25 mg PO DAILY BP 02/01/18 [History Last Taken 02/01/18] fenofibrate nanocrystallized 48 mg tablet 48 mg PO DAILY 02/01/18 [History Last Taken Unknown] omega-3 fatty acids 1,000 mg capsule 1,000 mg PO DAILY 02/01/18 [History Last Taken 02/01/18] ergocalciferol (vitamin D2) 1,250 mcg (50,000 unit) capsule 50,000 units PO MO 08/15/20 [History Last Taken Unknown] yqqoehlhosd-vik-snsrtihp-vit C-Mn-hrb21 500 mg-333 mg-5 mg capsule 2 ea PO DAILY 08/15/20 [History Last Taken Unknown] magnesium 200 mg tablet 400 mg PO DAILY 08/15/20 [History Last Taken Unknown] cefdinir 300 mg capsule 300 mg PO Q12H #14 caps 11/03/23 [Rx Last Taken Unknown] metronidazole 500 mg tablet 500 mg PO Q8H #21 tabs 11/03/23 [Rx Last Taken Unknown] Allergy/AdvReac Type Severity Reaction Status Date / Time No Known Allergies Allergy Verified 11/03/23 10:59 Social History Smoking Status: Former smoker ROS ROS ED Constitutional Constitutional ED: Denies chills, fever(s) or sweats Eyes Eyes: Denies change in vision ENT ENT ED: Denies dysphagia or sore throat Cardiovascular Cardiovascular: Denies chest pain, leg edema, palpitations or racing heartbeat Respiratory/Chest Respiratory/Chest: Denies cough, dyspnea or dyspnea on exertion Gastrointestinal Gastrointestinal: Reports abdominal pain; Denies diarrhea, nausea or vomiting Genitourinary Genitourinary ED: Reports dysuria; Denies hematuria or urinary frequency Musculoskeletal Musculoskeletal: Denies back pain, extremity pain or neck pain Integumentary Denies rash or wounds Neurologic Neurologic: Denies headache(s), paresthesias or weakness EXAM Physical Exam Const Vital Signs: 11/03/23 10:58 Temperature 97.5 F L Temperature Source Temporal Pulse Rate 82 Respiratory Rate 16 Blood Pressure 166/86 H Blood Pressure Mean 112 Pulse Ox 96 Oxygen Delivery Method Room Air Positive well nourished and well developed General Appearance ED: well developed and NAD HEENT Reports moist mucous membranes normocephalic and atraumatic Eyes PERRL, EOMs intact bilaterally and conjunctivae normal General Eye ED: Yes normal appearance of both eyes Neck no lymphadenopathy and supple General: Negative for tenderness Chest Wall Chest: Negative for tenderness Resp normal respiratory effort and normal air movement Effort and Inspection: symmetric chest movement; Negative for respiratory distress Cardio regular rate, regular rhythm and no murmurs Peripheral Pulses: pulses 2+ throughout GI normal to inspection, nondistended, normoactive bowel sounds GI Narrative: Suprapubic tenderness on exam. Palpation: Negative for guarding or rebound tenderness present Narrative: No hernias palpated. No scrotal tenderness. No swelling. Back/Spine no CVA tenderness and no thoracic nor lumbar tenderness Extremity normal to inspection General Extremety ED: Negative for edema or tenderness General Extremity: Negative for edema Neuro oriented x3 and no sensory deficits noted Sensorium / Orientation: awake and alert Skin no rashes or lesions noted and no wounds MDM MDM MDM Narrative Medical decision making narrative: Interventions / MDM: Differential diagnosis: Diverticulitis Diagnosis considered but do not suspect: UTI however labs are normal. My EKG interpretation: N/A Imaging independently reviewed and interpreted by myself: CT abdomen pelvis: Uncovered sigmoid diverticulitis also read by radiology. External documents reviewed: N/A Test considered but not ordered:N/A ED course: Bedside ultrasound volume bladder 246 mL. Tender suprapubic. Labs were ordered. will order post void bladder scan. CT scan abdomen pelvis for further evaluation. Patient declines any pain medicines. 1300: Workup with labs white count 12.1. Urine without infection. CT scan uncomplicated sigmoid diverticulitis. Discussed findings with the patient. He started on antibiotics. He will avoid alcohol while on antibiotics. Strict return precautions. He had a colonoscopy 2 years ago per patient through [facility]. Discussed will need follow-up with GI repeat colonoscopy is in the next few months. All questions were answered. Re-evaluation: stable Disposition discussed with patient/family/significant other: Patient and significant other Case discussed with consulting clinician: N/A This note was generated with [employer] dictation software. It may contain incorrect words, spelling, and punctuation that were not noted in checking the note before signing. Lab Data Attestation: I reviewed the patient's lab results. Labs: Laboratory Results - last 24 hr 11/03/23 11/03/23 11:27 11:45 WBC 12.1 H RBC 4.91 Hgb 14.9 Hct 45.0 MCV 91.6 MCH 30.3 MCHC 33.1 RDW Std Deviation 42.1 RDW Coeff of Charlie 12.5 Plt Count 243 MPV 9.6 Immature Gran % (Auto) 0.500 Neut % (Auto) 76.8 H Lymph % (Auto) 12.6 L [place] % (Auto) 8.4 Eos % (Auto) 1.1 Baso % (Auto) 0.6 Absolute Neuts (auto) 9.3 H Absolute Lymphs (auto) 1.52 Nucleated RBC % 0 Sodium 139 Potassium 3.8 Chloride 107 Carbon Dioxide 26.0 Anion Gap 6 BUN 19 H Creatinine 1.13 Estim Creat Clear Calc 100.76 Est GFR (MDRD) Af Amer 87 Est GFR (MDRD) Non-Af 72 BUN/Creatinine Ratio 16.8 Glucose 126 H Calcium 9.6 Urine Color Yellow Urine Clarity Clear Urine pH 7.0 Ur Specific [place] 1.015 Urine Protein Negative Urine Glucose (UA) Normal Urine Ketones Negative Urine Occult Blood Negative Urine Nitrite Negative Urine Bilirubin Negative Urine Urobilinogen Normal Ur Leukocyte Esterase Negative Urine RBC 0 SEEN Urine WBC 0 SEEN Ur Squamous Epith Cells 0 SEEN Urine Bacteria 0 SEEN Urine Mucus 0 SEEN Radiography Diagnostic Testing: Clinical Impression(s) from Imaging Studies Abdomen/Pelvis CT 11/03/23 11:12 IMPRESSION: Hepatomegaly and fatty infiltration of the liver. Findings suggestive of a acute noncomplicated sigmoid diverticulitis. Diffuse bladder wall thickening with trabeculations. Electronically Signed: Pedro Patel MD at 12:20 EDT , Discharge Plan Triage Chief Complaint: Abd Pain ED Provider: Paolo Chao Dx/Rx/DC Orders Clinical Impression: Diverticulitis of sigmoid colon, Abdominal pain Instructions: Diverticulitis Dc Prescriptions: New metronidazole [metronidazole] 500 mg tablet 500 mg PO Q8H Qty: 21 0RF cefdinir 300 mg capsule 300 mg PO Q12H Qty: 14 0RF No Action Cetirizine Hcl [Zyrtec] 10 MG tablet 10 mg PO DAILY atenolol [Tenormin] 25 MG tablet 25 mg PO DAILY fenofibrate nanocrystallized 48 MG tablet 48 mg PO DAILY Patient Comments: Lisinopril/Hydrochlorothiazide [Zestoretic 20/25 Tablet] 1 TABLET tablet 1 tab PO DAILY omega-3 fatty acids 1,000 MG capsule 1,000 mg PO DAILY ergocalciferol (vitamin D2) 1,250 MCG capsule 50,000 units PO MO magnesium 200 MG tablet 400 mg PO DAILY [id number]-mvt-[id number]-C-Mn-[id number] 1 EACH capsule 2 ea PO DAILY Stand Alone Forms: ED Work / School Excuse Primary Care Provider: Vincent Prescott Referrals: Vincent Prescott MD [Primary Care Provider] - 1-2 Weeks Activity Restrictions/Additional Instructions: Uncomplicated sigmoid diverticulitis. Take and finish antibiotic as prescribed. Avoid alcohol while taking antibiotics that can make you severely sick. Tylenol as needed. If symptoms worsen developing fevers, return to the ED for evaluation. Follow-up with your doctor. Will need to follow-up with your GI doctor for repeat colonoscopy in 3 to 4 months. Disposition Disposition: Home, Self Care
[2023-11-03 11:40] LABS: Absolute Lymphocyte Count 1.52 X10^3/uL (0.83-4.51); Absolute Neutrophil Count 9.3 X10^3/uL (2.0-7.7); Basophil# 0.07 X10^3/uL; Basophil% 0.6 % (0-1); Eosinophil# 0.13 X10^3/uL; Eosinophils% 1.1 % (0-5); Hemoglobin 14.9 g/dL (13.0-16.5); Lymphocyte # 1.52 X10^3/ul (0.83-4.51); Lymphocyte % 12.6 % (19-41); Mean Corp Hgb Conc 33.1 g/dL (32-36); Mean Corpuscular Hgb 30.3 pg (27.0-32.0); Mean Corpuscular Volume 91.6 fL (80-94); Mean Platelet Vol. 9.6 fl (6.2-12.0); Monocyte# 1.01 X10^3/uL; Monocyte% 8.4 % (0-10); NRBC Flagged by Analyzer 0 % (0-5); Neutrophil # 9.29 X10^3/uL (2.7-7.7); Neutrophil % 76.8 % (47-70); Platelet Count 243 K/mm3 (150-450); RBC Distribution Width CV 12.5 % (11.6-14.6); RBC Distribution Width SD 42.1 fl (35.1-43.9); Red Blood Count 4.91 M/mm3 (4.6-6.2); White Blood Count 12.1 K/mm3 (4.4-11.0)
[2023-11-03 11:51] LABS: Bacteria 0 SEEN /hpf (None Seen); Mucous, Urine 0 SEEN /hpf (<or=2+); Red Blood Cells-Urine 0 SEEN /hpf (0-5); Squamous Epithelial Cells - UA 0 SEEN /hpf (0-5); White Blood Cells 0 SEEN /hpf (0-5)
[2023-11-03 11:53] LABS: Color, Urine Yellow (Yellow); Glucose, Dipstick Normal (Normal); Ketone-Dipstick Negative (Negative); Leukocyte Esterase-Dipstick Negative /ul (Negative); Nitrite-Dipstick Negative (Negative); Occult Blood-Urine Negative /ul (Negative); Protein-Dipstick Negative (Negative); Specific Gravity, Urine 1.015 (1.002-1.030); Urine Bilirubin Dipstick Negative (Negative); Urine Clarity Clear (Clear); Urine Urobilinogen Normal (Normal)
[2023-11-03 11:54] LABS: Anion Gap 6 (5-15); BUN 19 mg/dL (7-18); BUN/Creat Ratio 16.8 RATIO (10-20); Calcium,Total 9.6 mg/dL (8.5-10.1); Chloride 107 mmol/L (98-107); Creatinine, Serum 1.13 mg/dL (0.70-1.30); EST Glomerular Filtration Rate 72 mL/min (>60); Est Glom Filt Rate - Afr Amer 87 mL/min (>60); Estimated Creatinine Clearance 100.76 ml/min; Glucose 126 mg/dL (74-106); Potassium 3.8 mmol/L (3.5-5.1); Sodium Level 139 mmol/L (136-145)
[2023-11-03] MEDS: metroNIDAZOLE 500 MG Tablet PO (13:16)
[2023-11-03] MEDS: Cefdinir 300 MG Capsule PO (13:16)
[2023-11-03 13:24] VITALS: BP 150/80; PULSE 84; RESP 16; TEMP 36.4; O2SAT 97
== END 2023-11-03 13:25 | disposition home or self-care (01) ==
PROVIDERS: Emergency Provider Emergency Medicine; PCP Family Medicine; Visit Provider Emergency Medicine
DX: K57.32 Diverticulitis of large intestine without perforation or abscess without bleeding (principal); Z87.891 Personal history of nicotine dependence; R30.0 Dysuria; Z80.42 Family history of malignant neoplasm of prostate; Z79.899 Other long term (current) drug therapy; R16.0 Hepatomegaly, not elsewhere classified
CPT/HCPCS: 74177; 80048; 81001; 85025; 87086; 99282; Q9967

== ENCOUNTER 2024-02-09 09:00 | Inpatient (IN) | payer BC, SELFPAY ==
[2024-02-09] VITALS (30 sets, daily range): BP systolic 97–129; BP diastolic 62–101; PULSE 86–126; RESP 13–23; TEMP 36.2–36.6; O2SAT 93–100; BMI 42.5; BMI 42.1
--- NOTE | 2024-02-09 09:01 | EKG12_ITS ---
Test Reason : CP Blood Pressure : / mmHG Vent. Rate : 121 BPM Atrial Rate : 128 BPM P-R Int : 186 ms QRS Dur : 122 ms QT Int : 320 ms P-R-T Axes : 000 055 051 degrees QTc Int : 454 ms ATRIAL FLUTTER Non-specific intra-ventricular conduction delay Borderline ECG Confirmed by JULEE ESPINOZA, FERNANDO ([id number]), avid editor TONG MOISE ([id number]) on 02/10/2024 12:58:54 PM Referred By: SHEILA Confirmed By:FERNANDO LADD MD
--- NOTE | 2024-02-09 09:14 | EKG12_ITS ---
Test Reason : REPEAT Blood Pressure : / mmHG Vent. Rate : 081 BPM Atrial Rate : 258 BPM P-R Int : 000 ms QRS Dur : 122 ms QT Int : 388 ms P-R-T Axes : 260 041 052 degrees QTc Int : 450 ms Atrial flutter with variable A-V block Non-specific intra-ventricular conduction delay Abnormal ECG Confirmed by JULEE ESPINOZA, FERNANDO ([id number]), video editor TONG MOISE ([id number]) on 02/10/2024 9:44:45 AM Referred By: Confirmed By:FERNANDO LADD MD
--- NOTE | 2024-02-09 09:16 | EDS_ITS ---
HPI History of Present Illness Chief Complaint: Chest Pain Informant: patient Narrative Narrative: Patient is a 54-year-old male with history of hypertension (on atenolol, lisinopril and hydrochlorothiazide), elevated glucose without diagnosis of diabetes and elevated triglyceride level (on fish oil ) presenting for her chest discomfort and shortness of breath. Patient states for the past few weeks he has had episodes of chest tightness, left-sided chest pain, diaphoresis and shortness of breath associated with exertion. He started taking 2 full strength aspirin when he gets these episodes. He has noticed some mild swelling of his legs but attribute that to drinking adilia salt. Notes that he had been camping recently. Went to [facility] primary care office today where they obtained an EKG which showed sinus tachycardia with ST segment changes in the inferior leads and was sent to the ER for further cardiac evaluation. Patient notes that since walking up the hill to the ER he started having some chest discomfort again. Did not take any aspirin today. Denies any history of DVT or PE. Notes that his father at age 54 but he is not sure what the causes. Has never had cardiac catheterization. States he took his regular morning medication today. [facility] Medical History Diverticulitis Collapsed lung Angina at rest Home Medications ?Medication ?Instructions ?Recorded ?Last Taken ?Type atenolol 25 mg tablet (Tenormin) 25 mg PO DAILY BP 02/01/18 02/09/24 History fenofibrate nanocrystallized 48 mg 48 mg PO DAILY 02/01/18 02/09/24 History tablet omega-3 fatty acids 1,000 mg 1,000 mg PO DAILY 02/01/18 02/08/24 History capsule ergocalciferol (vitamin D2) 1,250 50,000 units PO MO 08/15/20 Unknown History mcg (50,000 unit) capsule tylqonfjnru-age-yknqozir-vit 2 ea PO DAILY 08/15/20 Unknown History C-Mn-hrb21 500 mg-333 mg-5 mg capsule magnesium 200 mg tablet 200 mg PO DAILY 08/15/20 02/08/24 History cetirizine 10 mg tablet (24Hour 10 mg PO DAILY 02/09/24 02/09/24 History Allergy) lisinopril 20 1 tab PO DAILY 02/09/24 Unknown History mg-hydrochlorothiazide 25 mg tablet Allergy/AdvReac Type Severity Reaction Status Date / Time No Known Allergies Allergy Verified 11/03/23 10:59 Social History Smoking Status: Former smoker ROS ROS ED Constitutional Constitutional ED: Reports sweats; Denies chills or fever(s) Cardiovascular Cardiovascular: Reports as per HPI, chest pain and racing heartbeat; Denies palpitations Respiratory/Chest Respiratory/Chest: Reports dyspnea and dyspnea on exertion; Denies cough Gastrointestinal Gastrointestinal: Denies abdominal pain or vomiting Musculoskeletal Musculoskeletal: Denies arthralgias or myalgias Integumentary Denies rash Neurologic Neurologic: Denies weakness Hematologic/Lymphatic Hematologic/Lymphatic: Denies easy bleeding or easy bruising EXAM Physical Exam Const Vital Signs: 02/09/24 09:01 02/09/24 09:04 02/09/24 09:17 Temperature 97.8 F Temperature Source Temporal Pulse Rate 126 H Respiratory Rate 18 Respiratory Effort Short of Breath Blood Pressure 125/101 H Blood Pressure Mean 109 Pulse Ox 98 Oxygen Delivery Method Room Air Room Air Oxygen Flow Rate (L/min) 02/09/24 09:19 02/09/24 10:01 02/09/24 11:00 Temperature Temperature Source Pulse Rate 120 H 125 H 119 H Respiratory Rate 16 18 Respiratory Effort Blood Pressure 129/99 H 113/87 H 119/82 H Blood Pressure Mean 95 94 Pulse Ox 98 100 Oxygen Delivery Method Room Air Nasal Cannula Oxygen Flow Rate (L/min) 2 02/09/24 12:00 02/09/24 12:15 Temperature 97.7 F L Temperature Source Temporal Pulse Rate 92 114 H Respiratory Rate 16 16 Respiratory Effort Blood Pressure 117/77 120/78 Blood Pressure Mean 90 92 Pulse Ox 100 100 Oxygen Delivery Method Nasal Cannula Oxygen Flow Rate (L/min) 2 2 Positive well nourished and well developed General Appearance ED: well developed and NAD HEENT Reports moist mucous membranes Eyes PERRL Neck supple and no JVD Chest Wall inspection of chest normal and palpation of chest normal Resp normal respiratory effort and clear to auscultation bilaterally Resp Narrative: No crackles appreciated Cardio regular rhythm and no murmurs Rate: tachycardic Peripheral Pulses: radial pulses present and dorsalis pedis pulses present GI normal to inspection, nondistended, normoactive bowel sounds, soft to palpation and non-tender Extremity normal to inspection Extremity Narrative: Trace pedal edema present Neuro oriented x3 Sensorium / Orientation: awake and alert Motor Exam: Negative for general weakness Psych mental status grossly normal Skin no rashes or lesions noted and no wounds Heart Score History: Highly Suspicious ECG: Nonspecific Repolarization Age: >45 - <65 years Risk Factors: >/= 3 Risk Factors or History of CAD Score: 6 MDM MDM MDM Narrative Medical decision making narrative: Patient is evaluated for episodes of dyspnea on exertion, exercise intolerance, diaphoresis and chest pain. He is tachycardic on arrival but otherwise hemodynamically stable. Does have some mild chest pain. Is given nitroglycerin and aspirin in the ER. I will obtain cardiac workup including troponin, BNP and D-dimer. Differential includes was not limited to ACS, unstable angina, pulmonary emboli, new heart failure, pneumonia and thyroid dysfunction. Lab work largely normal. Patient does remain tachycardic and is given fluids with no real changes heart rate. He does start to have that almost look like atrial flutter waves on telemetry. A decision is made to give him metoprolol for possible new onset A-fib/atrial flutter. Patient is tachycardic despite the metoprolol. He is then given IV Cardizem bolus and drip. Patient then has a rate control and repeat EKG now does show atrial flutter with variable block. Given that he is on a Cardizem drip he will be admitted for further cardiac evaluation testing. In addition this is new onset atrial flutter and patient is symptomatic with this exertional chest pain that I still think needs further cardiac evaluation as well. Case is discussed with admitting physician, Dr. Rios. Lab Data Attestation: I reviewed the patient's lab results. Labs: Laboratory Results - last 24 hr 02/09/24 02/09/24 09:15 11:32 WBC 7.7 RBC 5.24 Hgb 15.7 Hct 47.5 MCV 90.6 MCH 30.0 MCHC 33.1 RDW Std Deviation 49.3 H RDW Coeff of Charlie 14.9 H Plt Count 214 MPV 10.0 Immature Gran % (Auto) 0.800 Neut % (Auto) 57.5 Lymph % (Auto) 30.1 [place] % (Auto) 8.2 Eos % (Auto) 2.1 Baso % (Auto) 1.3 H Absolute Neuts (auto) 4.4 Absolute Lymphs (auto) 2.31 Nucleated RBC % 0 D-Dimer Quant (PE/DVT) 0.31 Sodium 139 Potassium 3.9 Chloride 107 Carbon Dioxide 28.0 Anion Gap 4 L BUN 29 H Creatinine 1.26 Estim Creat Clear Calc 88.65 Est GFR (MDRD) Af Amer 76 Est GFR (MDRD) Non-Af 63 BUN/Creatinine Ratio 23.0 H Glucose 127 H Calcium 9.4 Troponin I High Sens 6 6 B-Natriuretic Peptide 66.9 TSH 1.44 Radiography Chest X-Ray - ED: 1 View, Read by ED Physician, Read by Radiologist and No Acute Disease Diagnostic Testing: Clinical Impression(s) from Imaging Studies Chest X-Ray 02/09/24 09:30 IMPRESSION: Normal x-ray examination of the chest. Electronically Signed: Ten Reynolds MD at 9:49 EDT , Rhythm Strip Rhythm Strip: Sinus Tach Rate: 121 Ectopy: None EKG Initial EKG: Interpretation: Sinus Tachycardia Comments: Sinus tachycardia rate of 121 bpm Normal axis Nonspecific interventricular conduction delay Nonspecific T wave abnormalities that seem to be more prominent in the inferior leads Compared to prior EKG on 08/15/2020, patient is now tachycardic with these T wave changes in the inferior leads Follow-up EKG: Attestation: I personally reviewed and interpreted this EKG as follows: Interpretation: Atrial Flutter Comments: Atrial flutter with variable AV block at a rate of 81 beats per minutes Normal axis Nonspecific interventricular conduction delay This EKG is obtained after patient is placed on a Cardizem drip Management Discussion w/another healthcare provider: Hospitalist Critical Care Time Critical Care Time: Yes Critical care time (excluding procedures): 30-74 minutes (35), Discussing w/Patient &/or Family/Curriculum And Assessment Coordinator and Arranging Admission or Transfer Discharge Plan Dx/Rx/DC Orders Clinical Impression: Atrial flutter, HTN (hypertension), Chest pain, Shortness of breath Disposition Disposition: Acute Care Hospital [facility] Discharge Date/Time: 02/09/24 13:07
[2024-02-09] MEDS: Aspirin 81 MG TAB.CHEW 324 MG PO (09:18)
[2024-02-09] MEDS: Nitroglycerin SL (ED/IMG/CATH) 0.4 MG TABLET SL (09:19)
[2024-02-09 09:27] LABS: Absolute Lymphocyte Count 2.31 X10^3/uL (0.83-4.51); Absolute Neutrophil Count 4.4 X10^3/uL (2.0-7.7); Basophil% 1.3 % (0-1); Eosinophil# 0.16 X10^3/uL; Eosinophils% 2.1 % (0-5); Hematocrit 47.5 % (40-54); Hemoglobin 15.7 g/dL (13.0-16.5); Lymphocyte # 2.31 X10^3/ul (0.83-4.51); Lymphocyte % 30.1 % (19-41); Mean Corp Hgb Conc 33.1 g/dL (32-36); Mean Corpuscular Volume 90.6 fL (80-94); Monocyte# 0.63 X10^3/uL; Monocyte% 8.2 % (0-10); NRBC Flagged by Analyzer 0 % (0-5); Neutrophil # 4.42 X10^3/uL (2.7-7.7); Neutrophil % 57.5 % (47-70); Platelet Count 214 K/mm3 (150-450); RBC Distribution Width CV 14.9 % (11.6-14.6); RBC Distribution Width SD 49.3 fl (35.1-43.9); Red Blood Count 5.24 M/mm3 (4.6-6.2); White Blood Count 7.7 K/mm3 (4.4-11.0)
[2024-02-09] MEDS: Acetaminophen 325 MG Tablet PO (09:30)
--- NOTE | 2024-02-09 09:30 | RAD_ITS ---
STUDY: X-RAY CHEST REASON FOR EXAM: Male, 54 years old. chest pain TECHNIQUE: Single AP portable view of the chest. COMPARISON: 08/15/2020 FINDINGS: The lungs are clear and expanded. There is no demonstrated pleural abnormality. Normal size heart. Normal mediastinum and ralph. Normal visualized pulmonary arteries. Normal visualized aortic arch and descending thoracic aorta. Normal visualized thoracic spine. Normal visualized ribs, clavicles, and shoulders. There is no demonstrated abnormality of the visualized soft tissue structures of the upper abdomen. RAD/Chest 1 View (Portable) IMPRESSION: Normal x-ray examination of the chest. Electronically Signed: Ten Reynolds MD at 9:49 EDT ,
[2024-02-09] MEDS: 0.9% Normal Saline (500mL Bag) 500 ML 999 ML IV (09:33)
[2024-02-09 09:37] LABS: D-Dimer Quantitative (DVT/PE) 0.31 FEU/ug/m (0.27-0.49)
[2024-02-09 09:46] LABS: BNP,B-Type NATRIURETIC PEPTIDE 66.9 pg/mL (0-100)
[2024-02-09 09:50] LABS: Anion Gap 4 (5-15); BUN 29 mg/dL (7-18); Calcium,Total 9.4 mg/dL (8.5-10.1); Chloride 107 mmol/L (98-107); Creatinine, Serum 1.26 mg/dL (0.70-1.30); EST Glomerular Filtration Rate 63 mL/min (>60); Est Glom Filt Rate - Afr Amer 76 mL/min (>60); Estimated Creatinine Clearance 88.65 ml/min; Glucose 127 mg/dL (74-106); Potassium 3.9 mmol/L (3.5-5.1); Sodium Level 139 mmol/L (136-145); Thyroid Stim Hormone (TSH) 1.44 uIU/mL (0.358-3.74); Troponin-I HS (w/2H Reflex) 6 pg/mL (3.0-78.0)
[2024-02-09] MEDS: Metoprolol Tartrate 5 MG/5 ML Vial IV ×3 (10:32→11:03)
[2024-02-09 11:23] LABS: Reflex Troponin-HS? (from REC) Y
[2024-02-09] MEDS: dilTIAZem 25 MG/5 ML Vial 20 MG IV BOLUS (11:50)
[2024-02-09 12:10] LABS: Troponin-I HS 6 pg/mL (3.0-78.0)
[2024-02-09] MEDS: Diltiazem 125 MG in Dextrose 5%-Water (100mL Bag) 100 ML IV (12:15)
[2024-02-09 16:00] LABS: Troponin-I HS 6 pg/mL (3.0-78.0)
--- NOTE | 2024-02-09 16:40 | PCM.CONS.C ---
Assessment & Plan Assessment/Plan (1) Atrial flutter: QUALIFIERS: Atrial flutter type: unspecified Qualified Code(s): I48.92 - Unspecified atrial flutter (2) Chest pain: QUALIFIERS: Chest pain type: unspecified Qualified Code(s): R07.9 - Chest pain, unspecified (3) Shortness of breath: PLAN: Plan Patient's symptoms could be related to a flutter with RVR. We are switching from atenolol to metoprolol. We will try to wean off Cardizem. Check 2D echo. Oral anticoagulation discussed with the patient. If patient has low EF then we may proceed with coronary angiography. If patient's EF is preserved then we can proceed with stress testing. Oral anticoagulation can be initiated after workup for this chest pain. HPI Consult Data Date of Consult: 02/09/24 HPI Narrative Reason for Consultation: Shortness of breath, chest pain HPI Narrative: HERMAN CALDWELL, is a 54 M who presents with exertional shortness of breath. He also has on and off chest pain. Patient was found to be in a flutter with RVR. He has been started on Cardizem drip. Patient does not have palpitations and is not able to tell when his heart rate is up. Currently patient is chest pain-free. Review of systems: All systems reviewed. All else is negative except in HPI [facility] Medical History Diverticulitis Collapsed lung Angina at rest Home Medications ?Medication ?Instructions ?Recorded ?Last Taken ?Type atenolol 25 mg tablet (Tenormin) 25 mg PO DAILY BP 02/01/18 02/09/24 History fenofibrate nanocrystallized 48 mg 48 mg PO DAILY 02/01/18 02/09/24 History tablet omega-3 fatty acids 1,000 mg 1,000 mg PO DAILY 02/01/18 02/08/24 History capsule ergocalciferol (vitamin D2) 1,250 50,000 units PO MO 08/15/20 Unknown History mcg (50,000 unit) capsule zuhiofetcsa-vzr-tncayobc-vit 2 ea PO DAILY 08/15/20 Unknown History C-Mn-hrb21 500 mg-333 mg-5 mg capsule magnesium 200 mg tablet 200 mg PO DAILY 08/15/20 02/08/24 History cetirizine 10 mg tablet (24Hour 10 mg PO DAILY 02/09/24 02/09/24 History Allergy) lisinopril 20 1 tab PO DAILY 02/09/24 Unknown History mg-hydrochlorothiazide 25 mg tablet Allergy/AdvReac Type Severity Reaction Status Date / Time No Known Allergies Allergy Verified 11/03/23 10:59 Social History Smoking Status: Former smoker Physical Exam Const alert and oriented x3 HEENT normocephalic Eyes no scleral icterus Resp normal respiratory effort and clear to auscultation bilaterally Cardio Cardio Narrative: Irregular rhythm Extremity no pedal edema Risk Stratification Risk Stratification Applicable: No Charges/Coding Visit Charges Inpatient E&M: 47372 Init Hosp L2 Objective Data Vital Signs: Vital Signs Temp Pulse Resp BP Pulse Ox O2 Del Method O2 Flow Rate 97.2 F L 105 H 21 H 106/65 97 Room Air 2 02/09/24 13:35 02/09/24 16:00 02/09/24 16:00 02/09/24 16:00 02/09/24 16:00 02/09/24 16:00 02/09/24 12:15 Oxygen Flow Rate (L/min) 2 Oxygen Delivery Method Room Air Weight: 285 lb 3.2 oz Body Mass Index (BMI) 42.1 Intake & Output: Intake and Output for Last 24 Hours 02/07/24 02/08/24 02/09/24 23:59 23:59 23:59 Intake Total 529.91 / 529.91 Balance 529.91 / 529.91 Lab / Micro Data 02/09/24 09:15 02/09/24 09:15 Labs: Laboratory Results - last 24 hr 02/09/24 09:15: WBC 7.7, RBC 5.24, Hgb 15.7, Hct 47.5, MCV 90.6, MCH 30.0, MCHC 33.1, RDW Std Deviation 49.3 H, RDW Coeff of Charlie 14.9 H, Plt Count 214, MPV 10.0, Immature Gran % (Auto) 0.800, Neut % (Auto) 57.5, Lymph % (Auto) 30.1, [place] % (Auto) 8.2, Eos % (Auto) 2.1, Baso % (Auto) 1.3 H, Absolute Neuts (auto) 4.4, Absolute Lymphs (auto) 2.31, Nucleated RBC % 0, D-Dimer Quant (PE/DVT) 0.31, Sodium 139, Potassium 3.9, Chloride 107, Carbon Dioxide 28.0, Anion Gap 4 L, BUN 29 H, Creatinine 1.26, Estim Creat Clear Calc 88.65, Est GFR (MDRD) Af Amer 76, Est GFR (MDRD) Non-Af 63, BUN/Creatinine Ratio 23.0 H, Glucose 127 H, Calcium 9.4, Troponin I High Sens 6, B-Natriuretic Peptide 66.9, TSH 1.44 02/09/24 11:32: Troponin I High Sens 6 02/09/24 14:50: Troponin I High Sens 6 Rhythm Strip Rhythm Strip: Sinus Tach Rate: 121 Ectopy: None Cardiology Labs/Tests 02/09/24 09:15: WBC 7.7, RBC 5.24, Hgb 15.7, Hct 47.5, MCV 90.6, MCH 30.0, MCHC 33.1, Plt Count 214, MPV 10.0, Immature Gran % (Auto) 0.800, Neut % (Auto) 57.5, Lymph % (Auto) 30.1, [place] % (Auto) 8.2, Eos % (Auto) 2.1, Baso % (Auto) 1.3 H, Absolute Neuts (auto) 4.4, Nucleated RBC % 0, D-Dimer Quant (PE/DVT) 0.31, Sodium 139, Potassium 3.9, Chloride 107, Carbon Dioxide 28.0, Anion Gap 4 L, BUN 29 H, Creatinine 1.26, Est GFR (MDRD) Af Amer 76, Est GFR (MDRD) Non-Af 63, BUN/Creatinine Ratio 23.0 H, Glucose 127 H, Calcium 9.4, B-Natriuretic Peptide 66.9 Rhythm: EKG: ECHO: Stress Test: Cardiac Cath: PCI: CT Surgery: Holter monitor: EPS: PPM: CXR: Chest CT Scan: Radiography Diagnostic Testing: Radiology Impression Chest X-Ray 02/09/24 09:30 IMPRESSION: Normal x-ray examination of the chest. Electronically Signed: Ten Reynolds MD at 9:49 EDT ,
--- NOTE | 2024-02-09 17:07 | ECHOD_ITS ---
Reason For Study: A. fib/flutter Procedure This was a 2D Doppler, Color Flow transthoracic echocardiogram. Exam performed portable in patient room. Left Ventricle Normal LV size. Left ventricular systolic function is normal. The left ventricular ejection fraction is 55 %. No regional wall motion abnormalities noted. Right Ventricle Normal RV size. Normal systolic function. Atria Normal left atrium. Normal right atrium. Mitral Valve Normal mitral valve. Tricuspid Valve Normal tricuspid valve. Mild (1+) tricuspid valve insufficiency. Pulmonary artery systolic pressure is 28 mmHg. Aortic Valve Normal aortic valve. Trisinus/trileaflet aortic valve. Pulmonic Valve Normal pulmonic valve. Great Vessels Normal aortic root. The pulmonary artery is normal size. Inferior vena cava collapse with respiration. Pericardium/Pleural No pericardial effusion. MMode/2D Measurements & Calculations LVIDd: 5.4 cm IVSd: 1.1 cm LVOT diam: 2.3 cm LVIDs: 3.6 cm LVPWd: 0.97 cm LVOT area: 4.1 cm2 RVDd: 3.8 cm FS: 34.1 % Ao root diam: 2.9 cm LAV(MOD-bp): 55.5 ml LVAd ap4: 27.7 cm2 LAV(MOD-bp) Indexed: 23.0 ml/m2 LVLd ap4: 7.6 cm LAV(MOD-sp2): 40.9 ml EDV(MOD-sp4): 83.4 ml LAV(MOD-sp4): 64.8 ml EDV(sp4-el): 85.5 ml LVAs ap4: 16.5 cm2 LVLs ap4: 6.9 cm ESV(MOD-sp4): 35.5 ml ESV(sp4-el): 33.4 ml EF(MOD-sp4): 57.5 % EF(sp4-el): 60.9 % LVAd ap2: 28.7 cm2 SV(MOD-sp4): 47.9 ml SV(MOD-sp2): 53.0 ml LVLd ap2: 8.1 cm EDV(MOD-sp2): 87.2 ml EDV(sp2-el): 86.5 ml LVAs ap2: 16.8 cm2 LVLs ap2: 7.1 cm ESV(MOD-sp2): 34.2 ml ESV(sp2-el): 33.6 ml EF(MOD-sp2): 60.7 % SV(sp4-el): 52.0 ml LA dimension(2D): 4.3 cm LA A4 area: 22.6 cm2 RA A4 area: 15.4 cm2 Doppler Measurements & Calculations MV E max naresh: 82.5 cm/sec Ao V2 max: 128.8 cm/sec LV V1 max: 103.8 cm/sec Ao max P.7 mmHg LV V1 max P.4 mmHg Ao V2 mean: 94.2 cm/sec LV V1 mean P.6 mmHg Ao mean P.0 mmHg LV V1 mean: 76.2 cm/sec Ao V2 VTI: 26.0 cm LV V1 VTI: 19.1 cm AV (velocity ratio): 0.73 MELBA(I,D): 3.0 cm2 MELBA(V,D): 3.3 cm2 SV(LVOT): 77.4 ml PA V2 max: 69.5 cm/sec TR max naresh: 247.6 cm/sec PA max PG (full): 1.3 mmHg TR max P.5 mmHg ECHO/Echo Complete Interpretation Summary Normal LV size. Left ventricular systolic function is normal. The left ventricular ejection fraction is 55 %. Pulmonary artery systolic pressure is 28 mmHg. Ordering Physician: Teo Rios Referring Physician: Vincent Prescott Performed By: Natalie Monaco RDCS and Student
[2024-02-09] MEDS: Metoprolol Tartrate 25 MG Tablet PO ×2 (17:23→20:52)
--- NOTE | 2024-02-09 18:53 | PCM.HP.STD ---
HPI - General General Date of Admission: 02/09/24 Date of Service: 02/09/24 Chief Complaint: Chest pain and shortness of breath HPI Narrative HERMAN CALDWELL, is a 54 M who presents to the emergency room at [facility] with complaints of intermittent shortness of breath and chest pain-during exertion at times, over the past 2 weeks. Patient denies any history of coronary disease. Patient went to see his primary care physician today and an EKG was obtained which showed ST segment changes worrisome for possible ischemia and the patient was instructed to go to the emergency room here for evaluation. Initial EKG on the patient showed a sinus tachycardia, patient was given nitroglycerin and aspirin in the emergency room, labs were ordered showing a normal troponin, CBC was unremarkable, D-dimer was normal, and the patient's chemistry profile was remarkable for BUN of 29. Subsequent EKG obtained on the patient showed what appeared to be atrial flutter at a rate of approximately 130. Patient was given IV metoprolol several times without significant change in his heart rate, patient was then placed on a Cardizem drip with some decrease in his heart rate. Chest x-ray was performed which was unremarkable. Patient will be admitted to PCU stepdown on a Cardizem drip, I will have cardiology see the patient, his beta-barbara may need to be adjusted. [facility] Medical History Diverticulitis Collapsed lung Angina at rest Home Medications ?Medication ?Instructions ?Recorded ?Last Taken ?Type atenolol 25 mg tablet (Tenormin) 25 mg PO DAILY BP 02/01/18 02/09/24 History fenofibrate nanocrystallized 48 mg 48 mg PO DAILY 02/01/18 02/09/24 History tablet omega-3 fatty acids 1,000 mg 1,000 mg PO DAILY 02/01/18 02/08/24 History capsule ergocalciferol (vitamin D2) 1,250 50,000 units PO MO 08/15/20 Unknown History mcg (50,000 unit) capsule bbimtyscjle-stt-cilzukmq-vit 2 ea PO DAILY 08/15/20 Unknown History C-Mn-[id number] 500 mg-333 mg-5 mg capsule magnesium 200 mg tablet 200 mg PO DAILY 08/15/20 02/08/24 History cetirizine 10 mg tablet (24Hour 10 mg PO DAILY 02/09/24 02/09/24 History Allergy) lisinopril 20 1 tab PO DAILY 02/09/24 Unknown History mg-hydrochlorothiazide 25 mg tablet Allergy/AdvReac Type Severity Reaction Status Date / Time No Known Allergies Allergy Verified 11/03/23 10:59 Social History Smoking Status: Former smoker ROS Constitutional Constitutional: Denies anorexia, change in weight, fever(s), night sweats or weakness Eyes Eyes: Denies blurry vision, change in vision, discharge from eye(s) or eye pain Cardiovascular Cardiovascular: Reports chest pain and palpitations; Denies claudication or edema Respiratory/Chest Respiratory/Chest: Reports shortness of breath with exertion; Denies cough, hemoptysis or shortness of breath at rest Gastrointestinal Gastrointestinal: Denies abdominal pain, constipation, diarrhea, hematemesis, hematochezia, melena, nausea or vomiting Genitourinary Genitourinary: Denies dysuria, hematuria, urinary frequency, urinary hesitancy, urinary incontinence or urinary urgency Musculoskeletal Musculoskeletal: Denies back pain, joint pain, joint stiffness, joint swelling, myalgias or neck pain Neurologic Neurologic: Denies abnormal gait, abnormal speech, dizziness, focal weakness, headache(s), loss of vision, numbness, other visual disturbances, paresthesias, syncope or tingling Psychiatric Psychiatric: Denies anxiety, cognitive impairment, depression, irritability, mood swings or suicidal ideation Endocrine Endocrinology: Denies change in body appearance, cold intolerance, excessive sweating, heat intolerance, polydipsia or polyuria Hematologic/Lymphatic Hematologic/Lymphatic: Denies none, anemia, easy bleeding, easy bruising or lymphadenopathy Allergic/Immunologic Allergic/Immunologic: Denies rhinitis, urticaria, eczemia or asthma Vital Signs Vital Signs Vital Signs: 02/09/24 09:01 02/09/24 09:04 02/09/24 09:17 Temperature 97.8 F Temperature Source Temporal Pulse Rate 126 H Respiratory Rate 18 Respiratory Effort Short of Breath Respiratory Depth Respiratory Pattern Blood Pressure 125/101 H Blood Pressure Mean 109 Blood Pressure Source Blood Pressure Position Blood Pressure Location Pulse Ox 98 Oxygen Delivery Method Room Air Room Air Oxygen Flow Rate (L/min) 02/09/24 09:19 02/09/24 10:01 02/09/24 11:00 Temperature Temperature Source Pulse Rate 120 H 125 H 119 H Respiratory Rate 16 18 Respiratory Effort Respiratory Depth Respiratory Pattern Blood Pressure 129/99 H 113/87 H 119/82 H Blood Pressure Mean 95 94 Blood Pressure Source Blood Pressure Position Blood Pressure Location Pulse Ox 98 100 Oxygen Delivery Method Room Air Nasal Cannula Oxygen Flow Rate (L/min) 2 02/09/24 12:00 02/09/24 12:15 02/09/24 12:20 Temperature 97.7 F L 97.8 F Temperature Source Temporal Pulse Rate 92 114 H 99 Respiratory Rate 16 16 20 H Respiratory Effort Respiratory Depth Respiratory Pattern Blood Pressure 117/77 120/78 120/78 Blood Pressure Mean 90 92 92 Blood Pressure Source Blood Pressure Position Blood Pressure Location Pulse Ox 100 100 100 Oxygen Delivery Method Nasal Cannula Oxygen Flow Rate (L/min) 2 2 02/09/24 13:00 02/09/24 13:00 02/09/24 13:15 Temperature 97.2 F L Temperature Source Temporal Pulse Rate 104 H 105 H 115 H Respiratory Rate 16 17 21 H Respiratory Effort Respiratory Depth Respiratory Pattern Blood Pressure 116/78 115/81 H 117/79 Blood Pressure Mean 90 92 91 Blood Pressure Source Monitor Monitor Blood Pressure Position Semi-Fowlers Semi-Fowlers Blood Pressure Location Left Arm Left Arm Pulse Ox 98 94 98 Oxygen Delivery Method Room Air Room Air Room Air Oxygen Flow Rate (L/min) 02/09/24 13:35 02/09/24 13:45 02/09/24 13:48 Temperature 97.2 F L Temperature Source Temporal Pulse Rate 100 122 H Respiratory Rate 17 22 H Respiratory Effort Normal Non-Labored Respiratory Depth Normal Respiratory Pattern Normal Blood Pressure 115/81 H 125/91 H Blood Pressure Mean 92 102 Blood Pressure Source Monitor Monitor Blood Pressure Position Semi-Fowlers Semi-Fowlers Blood Pressure Location Left Arm Left Arm Pulse Ox 94 98 Oxygen Delivery Method Room Air Room Air Room Air Oxygen Flow Rate (L/min) 02/09/24 14:00 02/09/24 14:15 02/09/24 14:30 Temperature Temperature Source Pulse Rate 114 H 114 H 114 H Respiratory Rate 16 18 18 Respiratory Effort Respiratory Depth Respiratory Pattern Blood Pressure 121/87 H 118/79 117/82 H Blood Pressure Mean 98 92 93 Blood Pressure Source Monitor Monitor Monitor Blood Pressure Position Semi-Fowlers Semi-Fowlers Semi-Fowlers Blood Pressure Location Left Arm Left Arm Left Arm Pulse Ox 97 96 96 Oxygen Delivery Method Room Air Room Air Room Air Oxygen Flow Rate (L/min) 02/09/24 14:45 02/09/24 15:15 02/09/24 15:45 Temperature Temperature Source Pulse Rate 112 H 114 H 121 H Respiratory Rate 17 18 14 Respiratory Effort Respiratory Depth Respiratory Pattern Blood Pressure 118/75 111/67 105/91 H Blood Pressure Mean 89 81 95 Blood Pressure Source Monitor Monitor Monitor Blood Pressure Position Semi-Fowlers Semi-Fowlers Semi-Fowlers Blood Pressure Location Left Arm Left Arm Left Arm Pulse Ox 98 98 97 Oxygen Delivery Method Room Air Room Air Room Air Oxygen Flow Rate (L/min) 02/09/24 16:00 02/09/24 17:00 02/09/24 17:00 Temperature 97.8 F Temperature Source Temporal Pulse Rate 105 H 106 H 106 H Respiratory Rate 21 H 18 18 Respiratory Effort Respiratory Depth Respiratory Pattern Blood Pressure 106/65 103/80 103/80 Blood Pressure Mean 78 87 87 Blood Pressure Source Monitor Monitor Monitor Blood Pressure Position Semi-Fowlers Semi-Fowlers Semi-Fowlers Blood Pressure Location Left Arm Left Arm Left Arm Pulse Ox 97 96 96 Oxygen Delivery Method Room Air Room Air Room Air Oxygen Flow Rate (L/min) 02/09/24 17:23 02/09/24 18:00 Temperature Temperature Source Pulse Rate 106 H 99 Respiratory Rate 18 Respiratory Effort Respiratory Depth Respiratory Pattern Blood Pressure 103/80 104/85 H Blood Pressure Mean 91 Blood Pressure Source Monitor Blood Pressure Position Semi-Fowlers Blood Pressure Location Left Arm Pulse Ox 96 Oxygen Delivery Method Room Air Oxygen Flow Rate (L/min) Weight Weight: 129.365 kg Body Mass Index (BMI) 42.1 Physical Exam Const alert, oriented x3 and no apparent distress Constitutional Narrative: Patient is morbidly obese General Appearance: cooperative, well kempt and well developed Orientation / Consciousness: awake, oriented to person, oriented to place and oriented to time HEENT normocephalic, head/scalp atraumatic, hearing grossly normal bilaterally and moist oral mucous membranes Eyes PERRL, EOMs intact bilaterally and conjunctivae normal Neck supple, no JVD, thyroid normal and no carotid bruits General: trachea midline Resp normal respiratory effort, no retractions, no use of accessory muscles and clear to auscultation bilaterally Auscultation: Negative for rales, rhonchi or wheezes Cardio S1 normal heart sound, S2 normal heart sound, no murmurs, no rub and no gallops Cardio Narrative: Heart rate and rhythm is irregular GI normal to inspection, nondistended, normoactive bowel sounds, soft to palpation, non-tender and non-distended Extremity no clubbing, cyanosis or edema Skin no rashes or lesions noted General Skin Exam: no breakdown Neuro oriented x3, CN's II-XII intact bilaterally, moves all extremities, no focal motor deficits and no sensory deficits noted Sensorium / Orientation: awake and alert Speech: speech normal Psych affect normal Results Lab / Micro Data 02/09/24 09:15 02/10/24 05:51 Labs: Laboratory Results - last 24 hr 02/09/24 09:15: WBC 7.7, RBC 5.24, Hgb 15.7, Hct 47.5, MCV 90.6, MCH 30.0, MCHC 33.1, RDW Std Deviation 49.3 H, RDW Coeff of Charlie 14.9 H, Plt Count 214, MPV 10.0, Immature Gran % (Auto) 0.800, Neut % (Auto) 57.5, Lymph % (Auto) 30.1, Benton % (Auto) 8.2, Eos % (Auto) 2.1, Baso % (Auto) 1.3 H, Absolute Neuts (auto) 4.4, Absolute Lymphs (auto) 2.31, Nucleated RBC % 0, D-Dimer Quant (PE/DVT) 0.31, Sodium 139, Potassium 3.9, Chloride 107, Carbon Dioxide 28.0, Anion Gap 4 L, BUN 29 H, Creatinine 1.26, Estim Creat Clear Calc 88.65, Est GFR (MDRD) Af Amer 76, Est GFR (MDRD) Non-Af 63, BUN/Creatinine Ratio 23.0 H, Glucose 127 H, Calcium 9.4, Troponin I High Sens 6, B-Natriuretic Peptide 66.9, TSH 1.44 02/09/24 11:32: Troponin I High Sens 6 02/09/24 14:50: Troponin I High Sens 6 Rhythm Strip Rhythm Strip: Sinus Tach Rate: 121 Ectopy: None Imaging Radiology Impression Chest X-Ray 02/09/24 09:30 IMPRESSION: Normal x-ray examination of the chest. Electronically Signed: Ten Reynolds MD at 9:49 EDT , Assessment & Plan Assessment/Plan (1) Atrial flutter: QUALIFIERS: Atrial flutter type: unspecified Qualified Code(s): I48.92 - Unspecified atrial flutter PLAN: Plan 1. Atrial flutter-patient was admitted to PCU, he will be seen in consultation by cardiology, echocardiogram was ordered, patient's beta-barbara will be increased and he will be maintained on Cardizem IV. #2 essential hypertension-patient's blood pressure will be monitored and medications will be adjusted as necessary #3 morbid obesity-complicates care, management, recovery, and prognosis #4 hyperlipidemia-patient is on fenofibrate Total clinical time spent by myself addressing the patient's medical issues, reviewing all of his data, and collaborating with patient's care team: 55 minutes Charges/Coding Visit Charges Inpatient E&M: 27216 Init Hosp L2
[2024-02-10] VITALS (23 sets, daily range): BP systolic 84–123; BP diastolic 57–95; PULSE 52–124; RESP 13–20; TEMP 36.5–36.9; O2SAT 90–98
[2024-02-10] MEDS: Diltiazem 125 MG in Dextrose 5%-Water (100mL Bag) 100 ML 10 MG IV (00:02)
[2024-02-10 06:40] LABS: Anion Gap 7 (5-15); BUN 20 mg/dL (7-18); BUN/Creat Ratio 19.2 RATIO (10-20); Calcium,Total 9.2 mg/dL (8.5-10.1); Chloride 106 mmol/L (98-107); Creatinine, Serum 1.04 mg/dL (0.70-1.30); EST Glomerular Filtration Rate 79 mL/min (>60); Est Glom Filt Rate - Afr Amer 95 mL/min (>60); Estimated Creatinine Clearance 106.89 ml/min; Glucose 129 mg/dL (74-106); Potassium 3.6 mmol/L (3.5-5.1); Sodium Level 138 mmol/L (136-145)
[2024-02-10] MEDS: 0.9% Saline Lock 10 ML Syringe IV ×2 (08:28→20:57)
[2024-02-10] MEDS: Fenofibrate 48 MG Tablet PO (08:29)
[2024-02-10] MEDS: Metoprolol Tartrate 25 MG Tablet PO (08:29)
[2024-02-10] MEDS: Lisinopril 20 MG Tablet PO (08:29)
[2024-02-10] MEDS: hydroCHLOROthiazide 25 MG Tablet PO (08:30)
[2024-02-10] MEDS: Acetaminophen 325 MG Tablet 650 MG PO ×2 (08:31→19:32)
--- NOTE | 2024-02-10 10:01 | PN.CARD_ITS ---
Subjective Subjective Patient seen and evaluated. Objective Data Vital Signs: Vital Signs Temp Pulse Resp BP Pulse Ox O2 Del Method O2 Flow Rate 98.2 F 105 H 17 99/69 95 Room Air 2 02/10/24 08:27 02/10/24 08:29 02/10/24 08:27 02/10/24 08:27 02/10/24 08:27 02/10/24 08:38 02/09/24 12:15 Oxygen Flow Rate (L/min) 2 Oxygen Delivery Method Room Air Weight: 285 lb 3.2 oz Body Mass Index (BMI) 42.1 Intake & Output: Intake and Output for Last 24 Hours 02/08/24 02/09/24 02/10/24 23:59 23:59 23:59 Intake Total 1304.91 / 1619.91 761.92 / 761.92 Balance 1304.91 / 1619.91 761.92 / 761.92 Lab / Micro Data 02/09/24 09:15 02/10/24 05:51 Labs: Laboratory Results - last 24 hr 02/09/24 11:32: Troponin I High Sens 6 02/09/24 14:50: Troponin I High Sens 6 02/10/24 05:51: Sodium 138, Potassium 3.6, Chloride 106, Carbon Dioxide 25.0, Anion Gap 7, BUN 20 H, Creatinine 1.04, Estim Creat Clear Calc 106.89, Est GFR (MDRD) Af Amer 95, Est GFR (MDRD) Non-Af 79, BUN/Creatinine Ratio 19.2, Glucose 129 H, Calcium 9.2 Rhythm Strip Rhythm Strip: Sinus Tach Rate: 121 Ectopy: None Cardiology Labs/Tests 02/10/24 05:51: Sodium 138, Potassium 3.6, Chloride 106, Carbon Dioxide 25.0, Anion Gap 7, BUN 20 H, Creatinine 1.04, Est GFR (MDRD) Af Amer 95, Est GFR (MDRD) Non-Af 79, BUN/Creatinine Ratio 19.2, Glucose 129 H, Calcium 9.2 Rhythm: EKG: ECHO: Stress Test: Cardiac Cath: PCI: CT Surgery: Holter monitor: EPS: PPM: CXR: Chest CT Scan: Physical Exam Const alert and oriented x3 General Appearance: cooperative HEENT normocephalic Head and Scalp: atraumatic Eyes no scleral icterus Neck General: normal visual inspection Chest inspection of chest normal and palpation of chest normal Resp normal respiratory effort and clear to auscultation bilaterally Auscultation: clear to auscultation bilaterally Cardio regular rate, regular rhythm, S1 normal heart sound and S2 normal heart sound Cardio Narrative: Irregular rhythm Jugular Venous Distention: JVD GI normal to inspection, nondistended, normoactive bowel sounds Extremity no pedal edema Peripheral Pulses: Yes pulses 2+ throughout and femoral pulses present Skin no rashes or lesions noted Neuro oriented x3 and CN's II-XII intact bilaterally Psych Appearance: grossly normal and appropriate Assessment & Plan Assessment/Plan (1) Atrial flutter: QUALIFIERS: Atrial flutter type: unspecified Qualified Code(s): I 48.92 - Unspecified atrial flutter PLAN: He does have what appears to be paroxysmal new onset atrial flutter. My recommendation will be to increase the metoprolol to 100 mg twice a day, continue Eliquis for rate control and for anticoagulation respectively. His echocardiogram demonstrated overall preserved left ventricular systolic function. (2) Chest pain: QUALIFIERS: Chest pain type: unspecified Qualified Code(s): R07.9 - Chest pain, unspecified PLAN: He does have chest discomfort which appears to be atypical and noncardiac. We will obtain a pharmacologic myocardial perfusion stress test and depending on the findings further recommendations will be made. (3) HTN (hypertension): PLAN: He does have a history of hypertension. My recommendation will be for us to manage this with a beta-barbara for now. We can titrate the LAYLA inhibitor later on.
--- NOTE | 2024-02-10 11:26 | CASEMGMT ---
LACEY VALADEZ Assessment Face to Face with patient for initial transition planning/care coordination assessment. LACEY VALADEZ introduced self and role at [facility], pt voices understanding. Pt is A&Ox4 and is resting comfortably in bed and is calm. Care providers, pharmacy, and demographics verified. Admitting dx: Maria FLORES PCP: Vincent Prescott Specialists: Denies. Pt is being seen by Dr. Bernal during stay [facility] Insurance: [employer] Prescription Benefit:Yes LNOK: Sushila Cole (W) Living Arrangements: Pt lives with his in a two story home with two steps to enter ADLs/IADLs: Ind Transportation: Self, W DME: BP Monitor. Denies further needs HHC/SNF: Denies history or needs Pt?s goal: home Plan: Home no needs. 6-click is 24. Pt denies the need for HH or OP Tx. Pt states that he feels safe returning home with his once he is medically ready. CM to follow for new blood thinning Rx. Samson Loredo RN, CM
--- NOTE | 2024-02-10 16:37 | PN.HOSP_ITS ---
Reason for Visit Reason for Visit: Diagnoses Essential (primary) hypertension (02/09/24) Unspecified atrial flutter (02/09/24) Shortness of breath (02/09/24) Chest pain, unspecified (02/09/24) Subjective Subjective Patient was seen and examined today, patient's echocardiogram was unremarkable, cardiology increased his metoprolol to 100 mg twice a day, he is scheduled to undergo a treadmill nuclear stress test tomorrow. Objective Data Objective Data Vital Signs: Vital Signs Temp Pulse Resp BP Pulse Ox O2 Del Method O2 Flow Rate 98.4 F 108 H 16 117/83 H 98 Room Air 2 02/10/24 14:13 02/10/24 14:13 02/10/24 14:13 02/10/24 14:13 02/10/24 14:13 02/10/24 14:13 02/09/24 12:15 Oxygen Flow Rate (L/min) 2 Oxygen Delivery Method Room Air Weight: 129.365 kg Body Mass Index (BMI) 42.1 Intake & Output: Intake and Output for Last 24 Hours 02/08/24 02/09/24 02/10/24 23:59 23:59 23:59 Intake Total 1304.91 / 1619.91 761.92 / 761.92 Balance 1304.91 / 1619.91 761.92 / 761.92 Lab / Micro Data 02/09/24 09:15 02/10/24 05:51 Labs: Laboratory Results - last 24 hr 02/10/24 05:51: Sodium 138, Potassium 3.6, Chloride 106, Carbon Dioxide 25.0, Anion Gap 7, BUN 20 H, Creatinine 1.04, Estim Creat Clear Calc 106.89, Est GFR (MDRD) Af Amer 95, Est GFR (MDRD) Non-Af 79, BUN/Creatinine Ratio 19.2, Glucose 129 H, Calcium 9.2 Radiography Diagnostic Testing: Radiology Impression Echocardiogram 02/09/24 17:07 Interpretation Summary Normal LV size. Left ventricular systolic function is normal. The left ventricular ejection fraction is 55 %. Pulmonary artery systolic pressure is 28 mmHg. Ordering Physician: Teo Rios Referring Physician: Vincent Prescott Performed By: Natalie Monaco RDCS and Student Rhythm Strip Rhythm Strip: Sinus Tach Rate: 121 Ectopy: None Physical Exam Narrative alert, oriented x3 and no apparent distress Constitutional Narrative: Patient is morbidly obese General Appearance: cooperative, well kempt and well developed Orientation / Consciousness: awake, oriented to person, oriented to place and oriented to time HEENT normocephalic, head/scalp atraumatic, hearing grossly normal bilaterally and moist oral mucous membranes Eyes PERRL, EOMs intact bilaterally and conjunctivae normal Neck supple, no JVD, thyroid normal and no carotid bruits General: trachea midline Resp normal respiratory effort, no retractions, no use of accessory muscles and clear to auscultation bilaterally Auscultation: Negative for rales, rhonchi or wheezes Cardio S1 normal heart sound, S2 normal heart sound, no murmurs, no rub and no gallops Cardio Narrative: Heart rate and rhythm is irregular GI normal to inspection, nondistended, normoactive bowel sounds, soft to palpation, non-tender and non-distended Extremity no clubbing, cyanosis or edema Skin no rashes or lesions noted General Skin Exam: no breakdown Neuro oriented x3, CN's II-XII intact bilaterally, moves all extremities, no focal motor deficits and no sensory deficits noted Sensorium / Orientation: awake and alert Speech: speech normal Psych affect normal Assessment & Plan Assessment/Plan (1) Atrial flutter: QUALIFIERS: Atrial flutter type: unspecified Qualified Code(s): I 48.92 - Unspecified atrial flutter PLAN: Plan 1. Atrial flutter-patient remains in atrial flutter at this time, his rate is not well-controlled, he will receive an increased dose of metoprolol tonight, patient will undergo a treadmill nuclear stress test tomorrow, patient will need a prescription for an anticoagulant at the time of discharge. #2 essential hypertension-patient's blood pressure will be monitored and medications will be adjusted as necessary #3 morbid obesity-complicates care, management, recovery, and prognosis #4 hyperlipidemia-patient is on fenofibrate Total clinical time spent by myself addressing the patient's medical issues, reviewing all of his data, and collaborating with patient's care team: 35 minutes Charges/Coding Visit Charges Inpatient E&M: 32195 Subs Hosp L2
[2024-02-10] MEDS: Metoprolol Tartrate 100 MG Tablet PO (16:49)
[2024-02-10] MEDS: Digoxin 250 MCG/ML Ampul IV (20:46)
[2024-02-11] VITALS (9 sets, daily range): BP systolic 104–128; BP diastolic 62–91; PULSE 73–125; RESP 16–18; TEMP 36.4–36.7; O2SAT 95–100
[2024-02-11] MEDS: 0.9% Saline Lock 10 ML Syringe IV ×2 (00:20→05:13)
[2024-02-11] MEDS: Digoxin 250 MCG/ML Ampul IV (00:20)
[2024-02-11] MEDS: 0.9% Normal Saline (250mL Bag) 250 ML 999 ML IV (04:58)
--- NOTE | 2024-02-11 05:55 | EKG12_ITS ---
Test Reason : PRE-STRESS TEST Blood Pressure : / mmHG Vent. Rate : 103 BPM Atrial Rate : 103 BPM P-R Int : 176 ms QRS Dur : 126 ms QT Int : 286 ms P-R-T Axes : 075 034 036 degrees QTc Int : 374 ms ATRIAL FLUTTER Non-specific intra-ventricular conduction block Abnormal ECG When compared with ECG of 09-FEB-2024 12:13, Sinus rhythm has replaced Atrial flutter QT has shortened Confirmed by JULEE ESPINOZA, FERNANDO ([id number]), book or script editor TONG MOISE ([id number]) on 02/14/2024 11:35:58 AM Referred By: Confirmed By:FERNANDO LADD MD
[2024-02-11 06:32] LABS: Absolute Lymphocyte Count 2.32 X10^3/uL (0.83-4.51); Absolute Neutrophil Count 4.4 X10^3/uL (2.0-7.7); Basophil# 0.11 X10^3/uL; Basophil% 1.4 % (0-1); Eosinophil# 0.23 X10^3/uL; Eosinophils% 2.9 % (0-5); Hemoglobin 15.5 g/dL (13.0-16.5); Lymphocyte # 2.32 X10^3/ul (0.83-4.51); Lymphocyte % 29.7 % (19-41); Mean Corp Hgb Conc 32.3 g/dL (32-36); Mean Corpuscular Hgb 29.6 pg (27.0-32.0); Mean Corpuscular Volume 91.6 fL (80-94); Mean Platelet Vol. 10.6 fl (6.2-12.0); Monocyte# 0.72 X10^3/uL; Monocyte% 9.2 % (0-10); NRBC Flagged by Analyzer 0 % (0-5); Neutrophil # 4.36 X10^3/uL (2.7-7.7); Neutrophil % 55.9 % (47-70); Platelet Count 189 K/mm3 (150-450); RBC Distribution Width CV 14.4 % (11.6-14.6); RBC Distribution Width SD 48.7 fl (35.1-43.9); Red Blood Count 5.24 M/mm3 (4.6-6.2); White Blood Count 7.8 K/mm3 (4.4-11.0)
[2024-02-11 06:55] LABS: Anion Gap 6 (5-15); BUN 21 mg/dL (7-18); BUN/Creat Ratio 19.6 RATIO (10-20); Calcium,Total 9.3 mg/dL (8.5-10.1); Chloride 107 mmol/L (98-107); Creatinine, Serum 1.07 mg/dL (0.70-1.30); EST Glomerular Filtration Rate 76 mL/min (>60); Est Glom Filt Rate - Afr Amer 92 mL/min (>60); Glucose 128 mg/dL (74-106); Magnesium 1.9 mg/dL (1.6-2.6); Phosphorus 3.7 mg/dL (2.5-4.9); Potassium 3.7 mmol/L (3.5-5.1); Sodium Level 140 mmol/L (136-145)
--- NOTE | 2024-02-11 09:56 | STRESSREP ---
Stress Test Report Pharmacologic myocardial perfusion stress test. [54 yo man with a flutter] Resting EKG demonstrates [atrial flutter] with a rate of [126] bpm. Resting blood pressure is [110/78] mmHg. 0.4 mg of regadenoson was infused per usual protocol followed by rapid intravenous saline flush injection. Continuous EKG monitoring was performed. The maximum heart rate was [129] bpm which was [78% ]of max impacted heart rate the maximum workload was 1 metabolic equivalent. At rest there were no ST or T wave changes noted to suggest ischemia and at peak infusion nonspecific ST changes were noted which did not meet the criteria for ischemia. No clinical angina is noted. The final blood pressure was [106/66]mmHg. Myocardial perfusion protocol. [14.8 ] mCi of technetium 99m sestamibi was injected at rest. 0.4 mg of regadenoson was infused per usual protocol. At peak infusion [45] mCi of technetium 99m sestamibi was injected stress images were obtained stress and rest images were reconstructed and compared in the short axis vertical long and horizontal long axis. Gated images were also obtained. Perfusion SPECT analysis: Review of the stress images demonstrate normal uptake of tracer noted in all areas of the myocardium. The resting images similar demonstrated normal uptake of tracer noted in all areas of the myocardium. No areas of reversibility are noted to suggest ischemia and no previous infarct is noted. Gated SPECT analysis: The gated ejection fraction is [45%]. Conclusion: [Normal] pharmacologic myocardial perfusion stress test.
[2024-02-11] MEDS: hydroCHLOROthiazide 25 MG Tablet PO (09:59)
[2024-02-11] MEDS: Fenofibrate 48 MG Tablet PO (09:59)
[2024-02-11] MEDS: Metoprolol Tartrate 100 MG Tablet PO (09:59)
--- NOTE | 2024-02-11 11:00 | ECHOTEE_ITS ---
Reason For Study: AFIB Medication DARCIE probe 6VT-D (SN [id number]) passed without difficulty. No complications were noted. Cetacaine Topical [place] given X2 orally. Versed 4 mg given slow IVP. Fentanyl 50 mcg given slow IVP. Performed a rapid injection of agitated mix of 9 cc saline and 1cc air to assess for atrial septal defect. Left Ventricle Normal LV size. Left ventricular systolic function is normal. The left ventricular ejection fraction is 65 %. No regional wall motion abnormalities noted. Right Ventricle Normal RV size. Normal systolic function. Atria Normal atrial septum. Bubble contrast study negative for right to left interatrial shunt. Normal left atrium. No thrombus is detected in the left atrial appendage. Normal right atrium. Mitral Valve Normal mitral valve. Tricuspid Valve Normal tricuspid valve. Aortic Valve Trisinus/trileaflet aortic valve. Pulmonic Valve Normal pulmonic valve. Vessels Normal aortic root. Pericardium No pericardial effusion. ECHO/Echo Transesophageal (DARCIE) Interpretation Summary Normal LV size. Left ventricular systolic function is normal. The left ventricular ejection fraction is 65 %. No thrombus is detected in the left atrial appendage. Normal right atrium. Bubble contrast study negative for right to left interatrial shunt. Ordering Physician: Catrachito Bernal Referring Physician: SERGEY MIRANDA Performed By: Victorina Quezada JERRY
--- NOTE | 2024-02-11 11:29 | PN.CARD_ITS ---
Subjective Subjective patient seen and evaluated Objective Data Vital Signs: Vital Signs Temp Pulse Resp BP Pulse Ox O2 Del Method O2 Flow Rate 97.6 F L 103 H 16 111/83 H 99 Room Air 2 02/11/24 09:56 02/11/24 09:59 02/11/24 09:56 02/11/24 09:56 02/11/24 09:56 02/11/24 10:06 02/09/24 12:15 Oxygen Flow Rate (L/min) 2 Oxygen Delivery Method Room Air Weight: 285 lb 3.2 oz Body Mass Index (BMI) 42.1 Intake & Output: Intake and Output for Last 24 Hours 02/09/24 02/10/24 02/11/24 23:59 23:59 23:59 Intake Total 1304.91 / 1619.91 761.92 / 761.92 250 / 250 Balance 1304.91 / 1619.91 761.92 / 761.92 250 / 250 Lab / Micro Data 02/11/24 05:10 02/11/24 05:10 Labs: Laboratory Results - last 24 hr 02/11/24 05:10: WBC 7.8, RBC 5.24, Hgb 15.5, Hct 48.0, MCV 91.6, MCH 29.6, MCHC 32.3, RDW Std Deviation 48.7 H, RDW Coeff of Charlie 14.4, Plt Count 189, MPV 10.6, Immature Gran % (Auto) 0.900, Neut % (Auto) 55.9, Lymph % (Auto) 29.7, [place] % (Auto) 9.2, Eos % (Auto) 2.9, Baso % (Auto) 1.4 H, Absolute Neuts (auto) 4.4, Absolute Lymphs (auto) 2.32, Nucleated RBC % 0, Sodium 140, Potassium 3.7, Chloride 107, Carbon Dioxide 27.0, Anion Gap 6, BUN 21 H, Creatinine 1.07, Estim Creat Clear Calc 103.90, Est GFR (MDRD) Af Amer 92, Est GFR (MDRD) Non-Af 76, BUN/Creatinine Ratio 19.6, Glucose 128 H, Calcium 9.3, Phosphorus 3.7, Magnesium 1.9 Rhythm Strip Rhythm Strip: Sinus Tach Rate: 121 Ectopy: None Cardiology Labs/Tests 02/11/24 05:10: WBC 7.8, RBC 5.24, Hgb 15.5, Hct 48.0, MCV 91.6, MCH 29.6, MCHC 32.3, Plt Count 189, MPV 10.6, Immature Gran % (Auto) 0.900, Neut % (Auto) 55.9, Lymph % (Auto) 29.7, [place] % (Auto) 9.2, Eos % (Auto) 2.9, Baso % (Auto) 1.4 H, Absolute Neuts (auto) 4.4, Nucleated RBC % 0, Sodium 140, Potassium 3.7, Chloride 107, Carbon Dioxide 27.0, Anion Gap 6, BUN 21 H, Creatinine 1.07, Est GFR (MDRD) Af Amer 92, Est GFR (MDRD) Non-Af 76, BUN/Creatinine Ratio 19.6, G lucose 128 H, Calcium 9.3, Phosphorus 3.7, Magnesium 1.9 Rhythm: EKG: ECHO: Stress Test: Cardiac Cath: PCI: CT Surgery: Holter monitor: EPS: PPM: CXR: Chest CT Scan: Physical Exam Const alert and oriented x3 General Appearance: cooperative HEENT normocephalic Head and Scalp: atraumatic Eyes no scleral icterus Neck General: normal visual inspection Chest inspection of chest normal and palpation of chest normal Resp normal respiratory effort and clear to auscultation bilaterally Auscultation: clear to auscultation bilaterally Cardio regular rate, regular rhythm, S1 normal heart sound and S2 normal heart sound Cardio Narrative: Irregular rhythm Jugular Venous Distention: JVD GI normal to inspection, nondistended, normoactive bowel sounds Extremity no pedal edema Peripheral Pulses: Yes pulses 2+ throughout and femoral pulses present Skin no rashes or lesions noted Neuro oriented x3 and CN's II-XII intact bilaterally Psych Appearance: grossly normal and appropriate Assessment & Plan Assessment/Plan (1) Atrial flutter: QUALIFIERS: Atrial flutter type: unspecified Qualified Code(s): I 48.92 - Unspecified atrial flutter PLAN: He does have what appears to be paroxysmal new onset atrial flutter. My recommendation will be to continue metoprolol to 100 mg twice a day, continue Eliquis for rate control and for anticoagulation respectively. His echocardiogram demonstrated overall preserved left ventricular systolic function. He underwent a DARCIE today with cardioversion to sinus rhythm (2) Chest pain: QUALIFIERS: Chest pain type: unspecified Qualified Code(s): R07.9 - Chest pain, unspecified PLAN: He does have chest discomfort which appears to be atypical and noncardiac. pharmacologic myocardial perfusion stress test was normal. (3) HTN (hypertension): PLAN: He does have a history of hypertension. My recommendation will be for us to manage this with a beta-barbara for now. We can titrate the LAYLA inhibitor later on.
--- NOTE | 2024-02-11 11:31 | PCM.OP.PRO ---
Procedure Report Elective DC cardioversion [54 yo man ]with a history of chronic persistent atrial flutter. [he ]was brought to the cardiac catheterization lab in the postabsorptive nonsedated state and was seen by [Dr. Jack Foster] of the critical care division. AP pads were applied and the patient was administered[ 40 mg of intravenous propofol ]after informed consent was obtained. 200 J of biphasic DC cardioversion energy were applied with prompt reversal to sinus rhythm. Patient was noted to be in sinus bradycardia. [He] tolerated the procedure well. X Conclusion: Successful DC cardioversion from [atrial flutter] to sinus rhythm. Recommendations: Continue other medications[ Eliquis and beta-barbara
--- NOTE | 2024-02-11 11:36 | PCM.OP.PRO ---
Procedure Report Date of Procedure: 02/11/24 Date of Procedure: 02/11/24 CONSCIOUS SEDATION REPORT DATE OF SERVICE: February 11, 2024 BRIEF HISTORY OF PRESENT ILLNESS: The patient is an 85-year-old male who presented to [facility] [place] to undergo a cardioversion due to underlying atrial fibrillation. He is systemically anticoagulated on Eliquis. His last echocardiogram demonstrated an ejection fraction of approximately 65%. He denies any prior anesthetic complications. PHYSICAL EXAMINATION: VITAL SIGNS: Reviewed and were acceptable. GENERAL: The patient is an obese male, in no apparent distress, speaking in full sentences. HEENT: Normocephalic, atraumatic. Mucous membranes are moist and pink. Good mouth opening noted. Trachea is midline. Good neck mobility. CHEST: S1, S2 irregularly irregular. No murmurs, rubs or gallops were noted. LUNGS: Clear to auscultation bilaterally without appreciable wheezes, rales or rhonchi. ABDOMEN: Soft, nontender, nondistended. Positive bowel sounds. EXTREMITIES: There is no clubbing, cyanosis or edema. ASA Class: II DESCRIPTION OF PROCEDURE: After confirmation of informed consent, the patient's anesthesia plan was reviewed in detail. Propofol was chosen. Risks and benefits were reviewed and the patient agreed to proceed. At 1120, the patient was given 40 mg of propofol. The patient achieved an appropriate level of sedation and was given a 200 joule synchronized cardioversion by Dr. Bernal at the bedside. This was successful in achieving normal sinus rhythm. The patient was monitored until 1135, at which time he reached his baseline mental status and function. The patient tolerated the procedure well. COMPLICATIONS: None ESTIMATED BLOOD LOSS: None RECOMMENDATIONS: Okay to recover in usual fashion. Procedures Pulmonary Pulmonary Procedures /Diagnostic Testin Con Sedation
--- NOTE | 2024-02-11 12:44 | EKG12_ITS ---
Test Reason : PCI Blood Pressure : / mmHG Vent. Rate : 075 BPM Atrial Rate : 075 BPM P-R Int : 190 ms QRS Dur : 126 ms QT Int : 396 ms P-R-T Axes : 049 058 052 degrees QTc Int : 442 ms Normal sinus rhythm Non-specific intra-ventricular conduction block Abnormal ECG When compared with ECG of 11-FEB-2024 10:30, No significant change was found Confirmed by JULEE ESPINOZA, FERNANDO ([id number]), videotape editor BARBARA NICHOLE ([id number]) on 02/15/2024 8:27:13 AM Referred By: JULEE Confirmed By:FERNANDO LADD MD
--- NOTE | 2024-02-11 14:22 | DCINST_ITS ---
Discharge Instructions Diet Discharge Diet: No restrictions Activity Discharge Activity: Return to Normal Activity Weight Bearing Status: Full weight bearing Follow Up Care Test Results: Test results from this visit will be discussed in further detail at your follow- up appointment, if applicable. Discharge Plan Admission Admit Date/Time: 02/09/24 12:20 Primary Reason for Your Visit: new onset f-sobyzqa-bvcqjoic Attending Provider: Teo Rios Primary Care Provider: Vincent Prescott Consulting Providers: Abdulkadir Hoffman Instructions Additional Instructions / Restrictions: Do not take Aleve, Ibuprofen, or aspirin Discharge Orders/Prescriptions Prescriptions: New metoprolol tartrate 100 mg Tablet 100 mg PO BID Qty: 60 0RF Eliquis 5 mg Tablet 5 mg PO BID Qty: 60 0RF Continued fenofibrate nanocrystallized 48 MG tablet 48 mg PO DAILY Patient Comments: ergocalciferol (vitamin D2) 1,250 MCG capsule 50,000 units PO MO Patient Comments: pt currently out magnesium 200 MG tablet 200 mg PO DAILY aogeeq-avo-xfmbwsle-C-Mn-hrb21 1 EACH capsule 2 ea PO DAILY cetirizine [24Hour Allergy] 10 mg tablet 10 mg PO DAILY lisinopril-hydrochlorothiazide 20-25 mg tablet 1 tab PO DAILY Discontinued atenolol [Tenormin] 25 MG tablet 25 mg PO DAILY omega-3 fatty acids 1,000 MG capsule 1,000 mg PO DAILY Referrals / Follow Up: Catrachito Bernal MD [Med Staff - Active Staff] - See Referral Note (in three weeks, call for appointment) Vincent Prescott MD [Primary Care Provider] - Disposition Disposition (needs filled in before D/C Order can be placed): Home, Self Care
--- NOTE | 2024-02-11 14:40 | PCM.DC.SUM ---
Providers Date of Admission: 02/09/24 Date of Discharge: 02/11/24 Primary Care Physician: Dr. Vincent Miranda MD Consultations 02/09/24 13:17 Consult: Cardiology Routine Consulting Provider: Abdulkadir Hoffman Reason for Consult: a flutter EMERGENT Consult: No MD Notified: Yes Date Notified: 02/09/24 Time Notified: 13:32 Method of Notification: Text 02/11/24 10:09 MD to MD Notification of Procedure Routine Reason for Consult: sophia EMERGENT Consult: No MD Notified: Yes Date Notified: 02/11/24 Time Notified: 10:09 Method of Notification: Verbal MD Notified:: Catrachito Bernal Reason For Visit: CHEST PAIN, ATRIAL FLUTTER Diagnosis Discharge Diagnosis (1) Atrial flutter: Status: Acute Code(s): I48.92 - Unspecified atrial flutter Qualifiers: Atrial flutter type: unspecified Qualified Code(s): I48.92 - Unspecified atrial flutter (2) Chest pain: Status: Acute Code(s): R07.9 - Chest pain, unspecified Qualifiers: Chest pain type: unspecified Qualified Code(s): R07.9 - Chest pain, unspecified (3) HTN (hypertension): Status: Chronic Code(s): I10 - Essential (primary) hypertension Plan 1. Atrial flutter-converted to sinus rhythm after cardioversion #2 essential hypertension-patient's blood pressure will be monitored and medications will be adjusted as necessary #3 morbid obesity-complicates care, management, recovery, and prognosis #4 hyperlipidemia-patient is on fenofibrate Total clinical time spent by myself addressing the patient's medical issues, reviewing all of his data, and collaborating with patient's care team: 35 minutes Medications at Discharge Home Medications fenofibrate nanocrystallized 48 mg tablet 48 mg PO DAILY 02/01/18 ergocalciferol (vitamin D2) 1,250 mcg (50,000 unit) capsule 50,000 units PO MO 08/15/20 vvjgipowiji-yjj-sgprkrff-vit C-Mn-hrb21 500 mg-333 mg-5 mg capsule 2 ea PO DAILY 08/15/20 magnesium 200 mg tablet 200 mg PO DAILY 08/15/20 cetirizine 10 mg tablet (24Hour Allergy) 10 mg PO DAILY 02/09/24 lisinopril 20 mg-hydrochlorothiazide 25 mg tablet 1 tab PO DAILY 02/09/24 apixaban 5 mg tablet (Eliquis) 5 mg PO BID #60 tabs 02/11/24 metoprolol tartrate 100 mg tablet 100 mg PO BID #60 tabs 02/11/24 tramadol 50 mg tablet 50 mg PO Q6H PRN pain #30 tabs 02/11/24 Hospital Course Operations None Procedures 2-D Echocardiogram, Cardioversion, Stress test and Transesophageal Echo Summary of Care Provided Minutes Spent on Discharge: 32 Hospital Course: This 54-year-old white male was seen in the emergency room at [facility] with complaints of chest discomfort and shortness of breath. Patient stated for the past few weeks he had had episodes of intermittent chest tightness and left-sided chest pain with diaphoresis and extreme shortness of breath associated with exertion. Patient went to see his primary care physician and they obtained an EKG which showed a sinus tachycardia with ST-T wave changes in the inferior leads, he was then sent to the emergency room at [facility] for evaluation Workup in the emergency room included labs which showed a normal white blood cell count, chemistry profile was normal, beta natruretic peptide was normal, troponin was normal. Chest x-ray obtained and was normal. EKG was obtained which showed showed a sinus tachycardia at 121. Patient was given IV metoprolol in the emergency room but remained tachycardic, he was then placed on IV Cardizem after bolus was given. Patient's heart rate was better controlled and repeat EKG showed atrial flutter with variable block. Patient was admitted to PCU and Cardizem drip was maintained, his beta-barbara was increased and he was seen in consultation by cardiology. Cardiology recommended proceeding with a stress test to evaluate for possible ischemia, and echocardiogram was obtained which showed normal LV function. When the patient was taken to the cardiology department to undergo the stress test, his rate was too high and cardiology decided to perform a SOPHIA and cardiovert the patient. Cardioversion was successful and the patient remained in sinus rhythm. Stress test was performed and was unremarkable for reversible ischemia. Later that day, patient was seen and examined on 02/11/2024: On examination he appeared in good health and spirits. Vital signs as documented. Skin warm and dry and without overt rashes. Neck without JVD, neck was supple, trachea midline, thyroid was normal. Lungs clear bilaterally, normal air movement was noted. Heart exam notable for regular rhythm, normal sounds and absence of murmurs, rubs or gallops. Abdomen unremarkable and without evidence of organomegaly, masses, or abdominal aortic enlargement. Bowel sounds are present, abdomen is not distended. Extremities nonedematous, no cyanosis was noted, no clubbing was noted. Neuro: Cranial nerves II through XII are grossly intact, no focal motor deficits were noted, sensation to light touch and pinprick intact, motor exam 5/5 throughout. Psych: Patient is alert and oriented x3, he does not appear anxious or depressed, he does not appear agitated. Patient appears stable for discharge home on 02/11/2024. Weight / BMI Weight Weight: 129.365 kg Body Mass Index (BMI) 42.1 ABG / Lab / Microbiology Data 02/11/24 05:10 02/11/24 05:10 Laboratory: Laboratory Results - last 24 hr 02/11/24 05:10: WBC 7.8, RBC 5.24, Hgb 15.5, Hct 48.0, MCV 91.6, MCH 29.6, MCHC 32.3, RDW Std Deviation 48.7 H, RDW Coeff of Charlie 14.4, Plt Count 189, MPV 10.6, Immature Gran % (Auto) 0.900, Neut % (Auto) 55.9, Lymph % (Auto) 29.7, [place] % (Auto) 9.2, Eos % (Auto) 2.9, Baso % (Auto) 1.4 H, Absolute Neuts (auto) 4.4, Absolute Lymphs (auto) 2.32, Nucleated RBC % 0, Sodium 140, Potassium 3.7, Chloride 107, Carbon Dioxide 27.0, Anion Gap 6, BUN 21 H, Creatinine 1.07, Estim Creat Clear Calc 103.90, Est GFR (MDRD) Af Amer 92, Est GFR (MDRD) Non-Af 76, BUN/Creatinine Ratio 19.6, Glucose 128 H, Calcium 9.3, Phosphorus 3.7, Magnesium 1.9 Radiography Diagnostic Testing: Radiology Impression Transesophageal Echocardiogram 02/11/24 11:00 Interpretation Summary Normal LV size. Left ventricular systolic function is normal. The left ventricular ejection fraction is 65 %. No thrombus is detected in the left atrial appendage. Normal right atrium. Bubble contrast study negative for right to left interatrial shunt. Ordering Physician: Catrachito Bernal Referring Physician: VINCENT MIRANDA Performed By: Victorina Quezada RDCS D/C Instructions Discharge Diet: No restrictions Weight Bearing Status: Full weight bearing Meaningful Use Info Meaningful Use Meaningful Use Diagnoses (Choose all that apply): None applicable Ischemic Stroke Statin Dosing Therapy Reference: STATIN DOSE THERAPY REFERENCE: * Patients > 75 years receive moderate or high dose statin therapy. * Patients 75 years or YOUNGER should receive HIGH intensity statin dose unless contraindicated. You will be required to document reason for non-treatment if statin daily dose does not meet guidelines. HIGH DOSE STATIN THERAPY DAILY Atorvastatin > than or = to 40 mg Rosuvastatin > than or = to 20 mg Amlodipine + Atorvastatin > than or = to 2.5/40 mg Ezetimibe + Simvastatin 10/80 mg Simvastatin 80mg Discharge Plan Admission Admit Date/Time: 02/09/24 12:20 Primary Reason for Your Visit: new onset l-pqodmhe-kjqqybdp Attending Provider: Teo Rios Primary Care Provider: Vincent Miranda Consulting Providers: Abdulkadir Hoffman Instructions Additional Instructions / Restrictions: Do not take Aleve, Ibuprofen, or aspirin Discharge Orders/Prescriptions Prescriptions: New metoprolol tartrate 100 mg Tablet 100 mg PO BID Qty: 60 0RF Eliquis 5 mg Tablet 5 mg PO BID Qty: 60 0RF tramadol 50 mg tablet 50 mg PO Q6H PRN (Reason: pain) Qty: 30 0RF Rx Instructions: 1-2 every 6 hours as needed for pain, may take each dose with 650 mg Tylenol Continued fenofibrate nanocrystallized 48 MG tablet 48 mg PO DAILY Patient Comments: ergocalciferol (vitamin D2) 1,250 MCG capsule 50,000 units PO MO Patient Comments: pt currently out magnesium 200 MG tablet 200 mg PO DAILY kegwjb-smk-lyaometu-C-Mn-hrb21 1 EACH capsule 2 ea PO DAILY cetirizine [24Hour Allergy] 10 mg tablet 10 mg PO DAILY lisinopril-hydrochlorothiazide 20-25 mg tablet 1 tab PO DAILY Discontinued atenolol [Tenormin] 25 MG tablet 25 mg PO DAILY omega-3 fatty acids 1,000 MG capsule 1,000 mg PO DAILY Referrals / Follow Up: Catrachito Bernal MD [Med Staff - Active Staff] - See Referral Note (in three weeks, call for appointment) Vincent Miranda MD [Primary Care Provider] - Disposition Disposition (needs filled in before D/C Order can be placed): Home, Self Care Charges/Coding Visit Charges Inpatient E&M: 91426 Disch Hosp >30min
--- NOTE | 2024-02-11 15:20 | CASEMGMT ---
Patient has order for discharge. Patient is discharging on Valentine Nguyễn called, copay is $40. RN CM in to discuss needs at discharge. RN CM provided savings card to patient. Patient denies needs or help at discharge. Patient has no further questions or concerns.
--- NOTE | 2024-02-11 15:35 | PHA.DC_ITS ---
Pharmacy [facility] has performed discharge medication reconciliation and counseling for this patient. The patient's discharge medication list was reviewed for discrepancies and discrepancies were resolved. The patient was counseled on the following discharge medications and changes in medications for homegoing were reviewed. The Reason for Use, instructions for use, and potential side effects were reviewed for all new medications. The patient's questions regarding all of their medications were answered. 1. Eliquis 5 mg PO BID 2. Metoprolol tartrate 100 mg PO BID 3. Tramadol 50 mg PO Q6H PRN pain The patient was able to verbally demonstrate an understanding of their discharge medications. The patient was counselled on new medications by pharmacy retail support specialist Aníbal. Medications at Discharge Home Medications fenofibrate nanocrystallized 48 mg tablet 48 mg PO DAILY 02/01/18 ergocalciferol (vitamin D2) 1,250 mcg (50,000 unit) capsule 50,000 units PO MO 08/15/20 oinyabgldfd-dzk-ylqmefmj-vit C-Mn-hrb21 500 mg-333 mg-5 mg capsule 2 ea PO DAILY 08/15/20 magnesium 200 mg tablet 200 mg PO DAILY 08/15/20 cetirizine 10 mg tablet (24Hour Allergy) 10 mg PO DAILY 02/09/24 lisinopril 20 mg-hydrochlorothiazide 25 mg tablet 1 tab PO DAILY 02/09/24 apixaban 5 mg tablet (Eliquis) 5 mg PO BID #60 tabs 02/11/24 metoprolol tartrate 100 mg tablet 100 mg PO BID #60 tabs 02/11/24 tramadol 50 mg tablet 50 mg PO Q6H PRN pain #30 tabs 02/11/24
== END 2024-02-11 15:44 | disposition home or self-care (01) | DRG 309 ==
LOC: ED 09:32 → PCU 12:45
PROVIDERS: Internal Medicine; Admitting Provider Internal Medicine; Emergency Provider Emergency Medicine; PCP Family Medicine; Visit Provider Internal Medicine
DX: I48.92 Unspecified atrial flutter (principal); Z68.41 Body mass index [BMI] 40.0-44.9, adult; E66.01 Morbid (severe) obesity due to excess calories; I48.91 Unspecified atrial fibrillation; I10 Essential (primary) hypertension; E78.5 Hyperlipidemia, unspecified; Z79.899 Other long term (current) drug therapy; Z87.891 Personal history of nicotine dependence
CPT/HCPCS: 36415; 71045; 78452; 80048; 83735; 83880; 84100; 84443; 84484; 85025; 85379; 93005; 93017; 93306; 93312; 93320; 93325; 99285; A9500; J7040; J7050; Q9957; A4216; J2785

== ENCOUNTER 2024-07-27 10:25 | Emergency (ER) | payer BC, SELFPAY ==
[2024-07-27] VITALS (15 sets, daily range): BP systolic 125–159; BP diastolic 72–89; PULSE 60–82; RESP 9–25; TEMP 36.4–36.6; O2SAT 95–98
--- NOTE | 2024-07-27 11:13 | EKG12_ITS ---
Test Reason : IREG HEART BEAT Blood Pressure : */* mmHG Vent. Rate : 72 BPM Atrial Rate : 72 BPM P-R Int : 184 ms QRS Dur : 128 ms QT Int : 412 ms P-R-T Axes : 35 55 35 degrees QTcB Int : 451 ms Normal sinus rhythm Non-specific intra-ventricular conduction block Abnormal ECG Confirmed by JULEE ESPINOZA, FERNANDO ([id number]), editor dictionary TONG MOISE ([id number]) on 07/28/2024 8:20:59 AM Referred By: Confirmed By: FERNANDO LADD MD
--- NOTE | 2024-07-27 11:16 | EDS_ITS ---
HPI History of Present Illness Chief Complaint: Chest Pain Informant: patient Onset/Context/Timing Onset: Today Activity at onset: gradual Timing: Intermittent Quality: Positive for Stabbing Location: Left Chest Worsened By: Nothing Relieved By: Nothing Associated Symptoms: Positive for Dyspnea, Acid Reflux and Palpitations; Negative for Nausea, Vomiting, Diaphoresis, Cough, Fever or Lightheadedness Narrative Narrative: Patient presents with chest pain that began today. Patient states it began after he woke up this morning. Patient states his pain began while he was driving to work. Patient states that it was still there when he got to work and so he came home. Patient describes it as stabbing. Patient states it comes and goes. Patient states it is over the left chest. Patient states nothing makes it better nothing makes it worse. Patient states he was having some palpitations. Patient states he has a history of atrial fibrillation and states that the pain feels similar to pain he gets when he goes into atrial fibrillation. Patient admits to some shortness of breath and reflux symptoms. Patient denies any nausea or vomiting. Patient denies any fevers or chills. CVD Risk Factors: Positive for Hypertension, Hypercholesterolemia and Family History 1' </=55; Negative for Diabetes or Smoking PE Risk Factors: Negative for Recent Travel/Surgery, Recent Immobilization, Prior DVT or PE, Cancer or OCP + Smoking + >/=35 PFSH [facility] Medical History Atrial flutter HTN (hypertension) Diverticulitis Collapsed lung Angina at rest Home Medications ?Medication ?Instructions ?Recorded ?Last Taken ?Type fenofibrate nanocrystallized 48 mg 48 mg PO DAILY 02/01/18 02/09/24 History tablet ergocalciferol (vitamin D2) 1,250 50,000 units PO MO 08/15/20 Unknown History mcg (50,000 unit) capsule plfdpacqlms-bgw-efrlucry-vit 2 ea PO DAILY 08/15/20 Unknown History C-Mn-hrb21 500 mg-333 mg-5 mg capsule magnesium 200 mg tablet 200 mg PO DAILY 08/15/20 02/08/24 History cetirizine 10 mg tablet (24Hour 10 mg PO DAILY 02/09/24 02/09/24 History Allergy) apixaban 5 mg tablet (Eliquis) 5 mg PO BID #60 tabs 04/17/24 Unknown Rx hydrochlorothiazide 12.5 mg tablet 12.5 mg PO QAM 04/17/24 Unknown History meclizine 25 mg tablet 25 mg PO QDAY PRN 04/17/24 Unknown History metoprolol tartrate 100 mg tablet 100 mg PO BID #60 tabs 04/17/24 Unknown Rx Allergy/AdvReac Type Severity Reaction Status Date / Time No Known Allergies Allergy Verified 07/27/24 10:31 Social History Smoking Status: Former smoker ROS ROS ED Constitutional Constitutional ED: Denies chills or fever(s) Eyes Eyes: Denies blurry vision or change in vision ENT ENT ED: Denies rhinorrhea or sore throat Cardiovascular Cardiovascular: Reports chest pain and palpitations Respiratory/Chest Respiratory/Chest: Reports dyspnea; Denies cough Gastrointestinal Gastrointestinal: Denies nausea or vomiting Genitourinary Genitourinary ED: Denies dysuria or hematuria Musculoskeletal Musculoskeletal: Denies back pain or neck pain Integumentary Denies abscess or rash Neurologic Neurologic: Denies headache(s) or weakness Allergic/Immunologic Allergic/Immunologic ED: Denies mouth swelling or urticaria EXAM Physical Exam Const Vital Signs: 07/27/24 10:26 07/27/24 11:13 07/27/24 11:36 Temperature 97.6 F L Temperature Source Oral Pulse Rate 82 64 Respiratory Rate 18 9 L Blood Pressure 159/87 H 141/75 H Blood Pressure Mean 111 93 Pulse Ox 98 97 Oxygen Delivery Method Room Air Room Air 07/27/24 11:45 07/27/24 11:47 07/27/24 12:00 Temperature Temperature Source Pulse Rate 63 68 Respiratory Rate 19 H 21 H Blood Pressure 143/89 H 153/87 H Blood Pressure Mean 104 109 Pulse Ox 96 95 Oxygen Delivery Method 07/27/24 12:00 07/27/24 12:15 07/27/24 12:30 Temperature Temperature Source Pulse Rate 68 61 60 Respiratory Rate 21 H 24 H 17 Blood Pressure 130/83 H 129/79 H 135/79 H Blood Pressure Mean 97 95 95 Pulse Ox 95 96 98 Oxygen Delivery Method 07/27/24 12:45 07/27/24 13:00 07/27/24 13:00 Temperature Temperature Source Pulse Rate 68 71 Respiratory Rate 25 H 20 H Blood Pressure 137/88 H 138/87 H Blood Pressure Mean 101 93 Pulse Ox 98 97 Oxygen Delivery Method 07/27/24 13:15 07/27/24 13:30 07/27/24 13:45 Temperature Temperature Source Pulse Rate 62 64 63 Respiratory Rate 16 15 15 Blood Pressure 125/81 H 146/83 H 142/81 H Blood Pressure Mean 93 98 97 Pulse Ox 97 97 97 Oxygen Delivery Method 07/27/24 14:00 07/27/24 14:15 07/27/24 14:53 Temperature 97.9 F Temperature Source Pulse Rate 62 63 60 Respiratory Rate 12 14 18 Blood Pressure 143/88 H 144/72 H 139/76 H Blood Pressure Mean 103 93 97 Pulse Ox 97 97 98 Oxygen Delivery Method Positive well nourished and well developed General Appearance ED: well developed and NAD HEENT Reports moist mucous membranes Neck supple and no JVD Chest Wall palpation of chest normal Resp normal respiratory effort and clear to auscultation bilaterally Cardio regular rate and regular rhythm GI soft to palpation, non-tender and non-distended Extremity normal to inspection General Extremety ED: Negative for tenderness Neuro oriented x3, CN's II-XII intact bilaterally and no sensory deficits noted Sensorium / Orientation: awake and alert Motor Exam: strength 5/5 throughout Psych mental status grossly normal Heart Score History: Slightly/Non-Suspicious ECG: Normal Age: >45 - <65 years Risk Factors: 1 or 2 Risk Factors Troponin: </= Normal Limit Score: 2 MDM MDM MDM Narrative Medical decision making narrative: Differential diagnosis includes cardiac dysrhythmia, cardiac ischemia, pneumonia, pneumothorax, electrolyte abnormality, gastroesophageal reflux disease, and anxiety. Patient is on Eliquis and denies any PE risk factors. Patient has a Wells score of 0. Because of this, I do not feel patient has pulmonary embolism. EKG will be obtained to assess for cardiac dysrhythmia and cardiac ischemia. Chest x-ray will be obtained to assess for pneumonia and pneumothorax. CBC will be obtained to assess for leukocytosis and anemia. Basic metabolic profile will be obtained to assess for electrolyte abnormality and renal function. PT with INR PTT will be obtained to assess for coagulopathy. High-sensitivity troponin will be obtained to assess for cardiac ischemia. 2-hour repeat high-sensitivity troponin will be obtained to assess for ongoing cardiac ischemia. Lab Data Attestation: I reviewed the patient's lab results. Lab results narrative: CBC was reviewed and was within normal limits. Basic metabolic profile was reviewed and was essentially within normal limits. PT with INR and PTT were reviewed and were within normal limits. High-sensitivity troponin was reviewed and was normal at 6. 2-hour repeat high-sensitivity troponin was reviewed and was normal at 6. Labs: Laboratory Results - last 24 hr 07/27/24 07/27/24 11:37 13:43 WBC 8.6 RBC 5.22 Hgb 16.0 Hct 48.0 MCV 92.0 MCH 30.7 MCHC 33.3 RDW Std Deviation 44.5 H RDW Coeff of Charlie 13.2 Plt Count 190 MPV 10.1 Immature Gran % (Auto) 0.700 Neut % (Auto) 58.0 Lymph % (Auto) 30.1 Allen % (Auto) 6.5 Eos % (Auto) 3.4 Baso % (Auto) 1.3 H Absolute Neuts (auto) 5.0 Absolute Lymphs (auto) 2.59 Nucleated RBC % 0 PT 12.2 INR 0.9 APTT 27.6 Sodium 141 Potassium 3.4 L Chloride 106 Carbon Dioxide 27.0 Anion Gap 8 BUN 22 H Creatinine 1.05 Est GFR (MDRD) Af Amer 94 Est GFR (MDRD) Non-Af 78 BUN/Creatinine Ratio 21.0 H Glucose 136 H Calcium 9.3 Troponin I High Sens 6 6 Radiography Chest X-Ray - ED: 1 View, Read by ED Physician, Read by Radiologist and No Acute Disease Diagnostic Testing: Clinical Impression(s) from Imaging Studies Chest X-Ray 07/27/24 11:41 IMPRESSION: Normal x-ray examination of the chest. Electronically Signed: Cortez Jessica MD at 12:29 EST , Portable 1 view chest x-ray was obtained. On my independent interpretation, lung mcbride are clear. There is normal cardiac silhouette. Bony thorax is normal. There is no acute process noted. Radiologist also interpreted the x- ray and agrees. EKG Initial EKG: Attestation: I personally reviewed and interpreted this EKG as follows: Interpretation: Sinus Rhythm (72) and No Acute Injury Pattern Comments: EKG was obtained. On my independent interpretation, it showed a normal sinus rhythm with a rate of 72. [place] interval, QRS interval, and QTc intervals were all normal. Beulah was normal. There are no acute ST or T wave changes. Prior EKG tracings: available for review Prior: Unchanged (03/06/2024) Follow-up EKG: Attestation: I personally reviewed and interpreted this EKG as follows: Interpretation: Sinus Rhythm (61) and No Acute Injury Pattern Comments: EKG was obtained. On my independent interpretation, it showed a normal sinus rhythm with a rate of 61. [place] interval, QRS interval, and QTc intervals were all normal. Beulah was normal. There are no acute ST or T wave changes. Prior EKG tracings: available for review Prior: Unchanged Treatment and Re-Evaluation :: Patient was given aspirin. Patient had no further episodes of chest pain here in the emergency department. Patient was advised of his findings. Patient has a HEART score of 2. Patient was advised that this is low risk for acute cardiac event. Patient was instructed to follow-up with his primary care physician in 5 to 7 days. Patient was instructed return if worse in any way. Patient understood and was agreeable with the plan. All questions were answered. Discharge Plan Triage Chief Complaint: Chest Pain ED Provider: Kevin Waggoner Dx/Rx/DC Orders Clinical Impression: Heart palpitations, Chest pain, HTN (hypertension) Instructions: ED Chest Pain, Uncertain Cause, ED Palpitations Prescriptions: No Action hydrochlorothiazide 12.5 mg tablet 12.5 mg PO QAM meclizine 25 mg tablet 25 mg PO QDAY PRN Eliquis 5 mg tablet 5 mg PO BID Qty: 60 11RF metoprolol tartrate 100 mg tablet 100 mg PO BID Qty: 60 11RF fenofibrate nanocrystallized 48 MG tablet 48 mg PO DAILY Patient Comments: ergocalciferol (vitamin D2) 1,250 MCG capsule 50,000 units PO MO Patient Comments: pt currently out magnesium 200 MG tablet 200 mg PO DAILY [id number]-sic-[id number]-C-Mn-[id number] 1 EACH capsule 2 ea PO DAILY cetirizine [24Hour Allergy] 10 mg tablet 10 mg PO DAILY Primary Care Provider: Vincent Prescott Referrals: Vincent Prescott MD [Primary Care Provider] - 5-7 Days Print Language: Yakut Disposition Disposition: Home, Self Care Discharge Date/Time: 07/27/24 14:58
[2024-07-27] MEDS: Aspirin 81 MG TAB.CHEW 324 MG PO (11:33)
--- NOTE | 2024-07-27 11:41 | RAD_ITS ---
STUDY: X-RAY CHEST REASON FOR EXAM: Male, 54 years old. Atypical chest pain TECHNIQUE: PA and lateral views of the chest. COMPARISON: 02/09/2024 FINDINGS: EKG leads overlie the chest The lungs are clear and expanded. There is no demonstrated pleural abnormality. Normal size heart. Normal mediastinum and ralph. Normal visualized pulmonary arteries. Normal visualized aortic arch and descending thoracic aorta. Normal visualized thoracic spine. Normal visualized ribs, clavicles, and shoulders. There is no demonstrated abnormality of the visualized soft tissue structures of the upper abdomen. RAD/Chest PA and Lateral IMPRESSION: Normal x-ray examination of the chest. Electronically Signed: Cortez Jessica MD at 12:29 [facility] ,
[2024-07-27 11:48] LABS: Absolute Lymphocyte Count 2.59 X10^3/uL (0.83-4.51); Basophil# 0.11 X10^3/uL; Basophil% 1.3 % (0-1); Eosinophil# 0.29 X10^3/uL; Eosinophils% 3.4 % (0-5); Lymphocyte # 2.59 X10^3/ul (0.83-4.51); Lymphocyte % 30.1 % (19-41); Mean Corp Hgb Conc 33.3 g/dL (32-36); Mean Corpuscular Hgb 30.7 pg (27.0-32.0); Mean Platelet Vol. 10.1 fl (6.2-12.0); Monocyte# 0.56 X10^3/uL; Monocyte% 6.5 % (0-10); NRBC Flagged by Analyzer 0 % (0-5); Neutrophil # 4.99 X10^3/uL (2.7-7.7); Platelet Count 190 K/mm3 (150-450); RBC Distribution Width CV 13.2 % (11.6-14.6); RBC Distribution Width SD 44.5 fl (35.1-43.9); Red Blood Count 5.22 M/mm3 (4.6-6.2); White Blood Count 8.6 K/mm3 (4.4-11.0)
[2024-07-27 12:01] LABS: Anion Gap 8 (5-15); BUN 22 mg/dL (7-18); Calcium,Total 9.3 mg/dL (8.5-10.1); Chloride 106 mmol/L (98-107); Creatinine, Serum 1.05 mg/dL (0.70-1.30); EST Glomerular Filtration Rate 78 mL/min (>60); Est Glom Filt Rate - Afr Amer 94 mL/min (>60); Glucose 136 mg/dL (74-106); International Normalized Ratio 0.9; Potassium 3.4 mmol/L (3.5-5.1); Prothrombin Time (Protime)PT. 12.2 SECONDS (11.7-14.9); Sodium Level 141 mmol/L (136-145); Troponin-I HS (w/2H Reflex) 6 pg/mL (3.0-78.0)
[2024-07-27 12:02] LABS: Partial Thromboplast Time 27.6 Seconds (24.1-36.2)
[2024-07-27 13:41] LABS: Reflex Troponin-HS? (from REC) Y
[2024-07-27 14:36] LABS: Troponin-I HS 6 pg/mL (3.0-78.0)
== END 2024-07-27 14:58 | disposition home or self-care (01) ==
PROVIDERS: Emergency Provider Emergency Medicine; PCP Family Medicine; Visit Provider Emergency Medicine
DX: R07.9 Chest pain, unspecified (principal); I48.91 Unspecified atrial fibrillation; R00.2 Palpitations; R06.02 Shortness of breath; I10 Essential (primary) hypertension; Z87.19 Personal history of other diseases of the digestive system; Z79.899 Other long term (current) drug therapy; Z79.01 Long term (current) use of anticoagulants; Z87.891 Personal history of nicotine dependence
CPT/HCPCS: 71046; 80048; 84484; 85025; 85610; 85730; 93005; 99283; A4216

== ENCOUNTER 2024-09-20 20:37 | Emergency (ER) | payer BC, SELFPAY ==
[2024-09-20 20:38] VITALS: BP 132/86; PULSE 73; RESP 18; TEMP 36.9; O2SAT 98; BMI 43.7
--- NOTE | 2024-09-20 20:55 | EKG12_ITS ---
Test Reason : CP Blood Pressure : */* mmHG Vent. Rate : 72 BPM Atrial Rate : 72 BPM P-R Int : 172 ms QRS Dur : 118 ms QT Int : 398 ms P-R-T Axes : 49 50 40 degrees QTcB Int : 435 ms Normal sinus rhythm Incomplete right bundle branch block Borderline ECG Confirmed by Ian Faye ([id number]), editorial clerk BARBARA NICHOLE ([id number]) on 09/21/2024 9:34:09 AM Referred By: HAILEY Confirmed By: Ian Faye
[2024-09-20 20:57] VITALS: O2SAT 93
[2024-09-20 21:06] LABS: Absolute Lymphocyte Count 3.95 X10^3/uL (0.83-4.51); Absolute Neutrophil Count 4.2 X10^3/uL (2.0-7.7); Basophil# 0.14 X10^3/uL; Basophil% 1.4 % (0-1); Eosinophil# 0.46 X10^3/uL; Eosinophils% 4.7 % (0-5); Hematocrit 45.4 % (40-54); Hemoglobin 15.6 g/dL (13.0-16.5); Lymphocyte # 3.95 X10^3/ul (0.83-4.51); Lymphocyte % 40.3 % (19-41); Mean Corp Hgb Conc 34.4 g/dL (32-36); Mean Corpuscular Volume 90.1 fL (80-94); Mean Platelet Vol. 10.2 fl (6.2-12.0); Monocyte# 1.03 X10^3/uL; Monocyte% 10.5 % (0-10); NRBC Flagged by Analyzer 0 % (0-5); Neutrophil # 4.18 X10^3/uL (2.7-7.7); Neutrophil % 42.6 % (47-70); Platelet Count 257 K/mm3 (150-450); RBC Distribution Width CV 13.2 % (11.6-14.6); RBC Distribution Width SD 42.6 fl (35.1-43.9); Red Blood Count 5.04 M/mm3 (4.6-6.2); White Blood Count 9.8 K/mm3 (4.4-11.0)
--- NOTE | 2024-09-20 21:08 | RAD_ITS ---
PROCEDURE: CHEST 1 VIEW (PORTABLE) REASON FOR EXAM: Chest pain. TECHNIQUE: Frontal view of the chest. COMPARISON: 07/27/2024. FINDINGS: The cardiac and mediastinal contours are normal. The lungs are clear. RAD/Chest 1 View (Portable) IMPRESSION: NEGATIVE SINGLE VIEW OF THE CHEST. Reading Location: [place] [id number]
[2024-09-20 21:19] LABS: International Normalized Ratio 0.9; Prothrombin Time (Protime)PT. 12.2 SECONDS (11.7-14.9)
[2024-09-20 21:32] LABS: Anion Gap 13 (5-15); BUN 30 mg/dL (4-19); BUN/Creat Ratio 25.7 RATIO (10-20); Carbon Dioxide 23.6 mmol/L (22.0-29.0); Chloride 100 mmol/L (96-108); Creatinine, Serum 1.2 mg/dL (0.8-1.3); EST Glomerular Filtration Rate 74 (>60); Estimated Creatinine Clearance 94.62 ml/min; Glucose 107 mg/dL (70-99); Potassium 3.6 mmol/L (3.3-5.1); Sodium Level 137 mmol/L (133-145); Troponin T High Sensitivity 8 ng/L (<=22)
[2024-09-20 21:38] VITALS: BP 104/64; PULSE 68; RESP 14; O2SAT 96
[2024-09-20 22:00] VITALS: BP 101/63; PULSE 70; RESP 19; O2SAT 93
--- NOTE | 2024-09-20 22:12 | ED.VIS.CHEST ---
HPI History of Present Illness Chief Complaint: Chest Pain Narrative Narrative: Chief complaint and HPI: Episodic chest pain. 54-year-old male with past medical history of atrial flutter status post cardioversion on Eliquis, HTN, previous pneumothorax presents for evaluation of episodic chest pain. History taken by patient as well as medical record. Patient states since his previous cardioversion he has had episodic chest pain. Onset of chest pain is random and not related to exertion. He describes it as sharp. He developed it twice today which is why he presents for further evaluation. He denies any fever, chills, shortness of breath, abdominal pain, nausea, vomiting. Denies a history of DVT/PE, blood clotting disorder, recent trauma or surgery, unilateral leg swelling, recent travel. He has not missed any of his doses of Eliquis. On chart review, patient had a hospitalization in January 2024 for atrial fibrillation with variable block. He underwent a stress test which was negative as well as DARCIE and then cardioversion. Echo at that time showed EF of 55%. Triage note states that the pain felt like heartburn however patient states that it was sharp and stabbing in nature. Chest pain has since resolved. Review of systems: See HPI Medications: As listed on the chart Allergies: As listed on the chart PFSH: Per chart Vital signs: As listed on the chart. Reviewed. Physical exam: Gen: A&O x3, NAD Head: Normocephalic, atraumatic Eyes: No sclera icterus, conjunctiva clear ENT: Moist mucous membranes Neck: Trachea midline, No JVD CV: RRR, no murmurs, no peripheral edema Resp: Lungs CTA BL, no w/r/c GI: Abd soft, non-distended, non-tender, no r/r/g Musc: Full ROM, no deformity Skin: Warm, dry Neuro: Alert, oriented, grossly intact, sensation intact Psych: Cooperative, appropriate mood and affect [facility] Medical History Atrial flutter HTN (hypertension) Diverticulitis Collapsed lung Angina at rest Home Medications ?Medication ?Instructions ?Recorded ?Last Taken ?Type fenofibrate nanocrystallized 48 mg 48 mg PO DAILY 02/01/18 02/09/24 History tablet ivumgvinwle-ajk-afsdmoiw-vit 2 ea PO DAILY 08/15/20 Unknown History C-Mn-hrb21 500 mg-333 mg-5 mg capsule magnesium 200 mg tablet 200 mg PO DAILY 08/15/20 02/08/24 History cetirizine 10 mg tablet (24Hour 10 mg PO DAILY 02/09/24 02/09/24 History Allergy) apixaban 5 mg tablet (Eliquis) 5 mg PO BID #60 tabs 04/17/24 Unknown Rx hydrochlorothiazide 12.5 mg tablet 12.5 mg PO QAM 04/17/24 Unknown History meclizine 25 mg tablet 25 mg PO QDAY PRN dizziness 04/17/24 Unknown History metoprolol tartrate 100 mg tablet 100 mg PO BID #60 tabs 04/17/24 Unknown Rx Allergy/AdvReac Type Severity Reaction Status Date / Time No Known Allergies Allergy Verified 09/20/24 20:38 Social History Smoking Status: Former smoker EXAM Physical Exam Const Vital Signs: 09/20/24 20:38 09/20/24 20:38 09/20/24 20:57 Temperature 98.5 F Temperature Source Oral Pulse Rate 73 Respiratory Rate 18 Respiratory Effort Normal Non-Labored Blood Pressure 132/86 H Blood Pressure Mean 101 Pulse Ox 98 93 Oxygen Delivery Method Room Air Room Air 09/20/24 21:38 09/20/24 22:00 09/20/24 23:00 Temperature Temperature Source Pulse Rate 68 70 64 Respiratory Rate 14 19 H 18 Respiratory Effort Blood Pressure 104/64 101/63 119/65 Blood Pressure Mean 77 75 83 Pulse Ox 96 93 95 Oxygen Delivery Method Room Air Room Air Room Air MDM MDM MDM Narrative Medical decision making narrative: 54-year-old male with past medical history of atrial flutter status post cardioversion on Eliquis, HTN, previous pneumothorax presents for evaluation of episodic chest pain. Chest pain has been ongoing intermittently since cardioversion last year. States he had 2 episodes today which is why he presents. Describes them as sharp. Currently asymptomatic. Differential diagnosis includes but is not limited to pleurisy, arrhythmia, electrolyte abnormality, pneumothorax, suspect less likely ACS, pneumonia, PE. Chest pain orders were placed in triage per protocol. Agree with orders are placed. I did add on a D-dimer. EKG and chest x-ray reviewed see below. CBC without leukocytosis or anemia. INR unremarkable. D-dimer unremarkable. BMP relatively unremarkable. Initial troponin as well as repeat troponin 8. Delta troponin 0. On reevaluation, patient is still not having chest pain. His vitals are stable. Given patient's episodic chest pain for months as well as that it is described as atypical, low suspicion for ACS. Patient's heart score is is a 3 which places him at low risk. He gets a point for age as well as 2 points for risk factors. In addition, patient did just have an unremarkable stress test less than a year ago. Patient is stable to discharge home he was educated to follow-up with his PCP. He has a cardiology appointment scheduled on the fifth. Patient was educated to keep this appointment return precautions explained. He confirmed understanding. EKG: Interpreted by me/EM physician: EKG shows normal sinus rhythm with incomplete right bundle branch block. No acute ischemic changes. Heart rate 72. This is similar to previous EKG. Diagnostic: Interpreted by me/EM physician: Chest x-ray without pneumonia, effusion, cardiomegaly, pneumothorax Impression: 1. Episodic chest pain, chronic and atypical in nature Lab Data Labs: Laboratory Results - last 24 hr 09/20/24 09/20/24 20:53 23:10 WBC 9.8 RBC 5.04 Hgb 15.6 Hct 45.4 MCV 90.1 MCH 31.0 MCHC 34.4 RDW Std Deviation 42.6 RDW Coeff of Charlie 13.2 Plt Count 257 MPV 10.2 Immature Gran % (Auto) 0.500 Neut % (Auto) 42.6 L Lymph % (Auto) 40.3 Kent % (Auto) 10.5 H Eos % (Auto) 4.7 Baso % (Auto) 1.4 H Absolute Neuts (auto) 4.2 Absolute Lymphs (auto) 3.95 Nucleated RBC % 0 PT 12.2 INR 0.9 D-Dimer Quant (PE/DVT) 0.27 Sodium 137 Potassium 3.6 Chloride Direct 100 Carbon Dioxide 23.6 Anion Gap 13 BUN 30 H Creatinine 1.2 Estim Creat Clear Calc 94.62 Est GFR (MDRD) Non-Af 74 BUN/Creatinine Ratio 25.7 H Glucose 107 H Calcium 10.0 Troponin T High Sens 8 Troponin T Hi Sens 2 Hr 8 Troponin T Hi Sens 2Hr Delta 0 Radiography Diagnostic Testing: Clinical Impression(s) from Imaging Studies Chest X-Ray 09/20/24 21:08 IMPRESSION: NEGATIVE SINGLE VIEW OF THE CHEST. Reading Location: [id number] Discharge Plan Triage Chief Complaint: Chest Pain ED Provider: Pepe Savage Dx/Rx/DC Orders Prescriptions: No Action hydrochlorothiazide 12.5 mg tablet 12.5 mg PO QAM meclizine 25 mg tablet 25 mg PO QDAY PRN (Reason: dizziness) Eliquis 5 mg tablet 5 mg PO BID Qty: 60 11RF metoprolol tartrate 100 mg tablet 100 mg PO BID Qty: 60 11RF fenofibrate nanocrystallized 48 MG tablet 48 mg PO DAILY Patient Comments: magnesium 200 MG tablet 200 mg PO DAILY [id number]-obj-vygbrglr-C-Mn-hrb21 1 EACH capsule 2 ea PO DAILY cetirizine [24Hour Allergy] 10 mg tablet 10 mg PO DAILY Primary Care Provider: Vincent Prescott Referrals: Vincent Prescott MD [Primary Care Provider] - Print Language: Singaporean
[2024-09-20 22:31] LABS: D-Dimer Quantitative (DVT/PE) 0.27 FEU/ug/m (0.27-0.49)
[2024-09-20 23:00] VITALS: BP 119/65; PULSE 64; RESP 18; O2SAT 95
[2024-09-20 23:40] LABS: TROPONIN VARIANCE 2 HR 0; Troponin T High Sens 2 HR 8 ng/L (<=22)
[2024-09-21] VITALS: BP 120/72; PULSE 65; RESP 12; O2SAT 91
[2024-09-21 00:06] VITALS: BP 120/72; PULSE 65; RESP 12; TEMP 36.9; O2SAT 91
== END 2024-09-21 00:10 | disposition home or self-care (01) ==
PROVIDERS: Emergency Provider Surgery; PCP Family Medicine; Visit Provider Surgery
DX: R07.9 Chest pain, unspecified (principal); I48.91 Unspecified atrial fibrillation; Z87.891 Personal history of nicotine dependence; I10 Essential (primary) hypertension; Z79.01 Long term (current) use of anticoagulants; Z79.899 Other long term (current) drug therapy
CPT/HCPCS: 71045; 80048; 84484; 85025; 85379; 85610; 93005; 99283; A4216